=== PATIENT | female | born 2000 | race Caucasian/White ===

== ENCOUNTER → 2022-07-31 15:54 | Outpatient (BNVA) | payer SELFPAY | PROVIDERS: PCP Family Medicine; Visit Provider Emergency Medicine | DX: R11.0 Nausea (principal); N39.0 Urinary tract infection, site not specified; B34.9 Viral infection, unspecified | CPT/HCPCS: 81000; 87426 ==

== ENCOUNTER → 2022-09-04 18:20 | Outpatient (BNVA) | payer SELFPAY | PROVIDERS: PCP Family Medicine; Visit Provider Emergency Medicine | DX: R11.0 Nausea (principal) | CPT/HCPCS: 81025 ==

== ENCOUNTER → 2023-08-27 15:11 | Outpatient (BNVA) | payer OTHER, SELFPAY | PROVIDERS: PCP Family Medicine; Visit Provider Nurse Practitioner Psychiatric/Mental Health | DX: Z79.899 Other long term (current) drug therapy (principal); F31.81 Bipolar II disorder; F43.12 Post-traumatic stress disorder, chronic; F41.1 Generalized anxiety disorder; F60.3 Borderline personality disorder; F17.200 Nicotine dependence, unspecified, uncomplicated | CPT/HCPCS: 80053; 80061; 83036; 84439; 84443; 85025 ==

== ENCOUNTER → 2024-01-08 07:56 | Outpatient (BNVA) | payer SELFPAY | PROVIDERS: PCP Family Medicine; Visit Provider Nurse Practitioner Women's Health | DX: N92.6 Irregular menstruation, unspecified (principal) | CPT/HCPCS: 81025 ==

== ENCOUNTER 2024-01-18 22:14 | Emergency (ER) | payer SELFPAY ==
[2024-01-18 22:19] VITALS: BP 130/81; PULSE 97; RESP 18; TEMP 36.7; O2SAT 98; BMI 39.7
--- NOTE | 2024-01-18 23:58 | W.ED.SKABFB ---
HPI - Skin/Abscess/Foreign Bdy General: Chief complaint: Skin/Abscess/Foreign Body Stated complaint: left arm pain Time Seen by Provider: 01/18/24 23:56 History of Present Illness: 24-year-old female comes in with induration and tenderness to the left axilla. Patient appears nontoxic. Patient appears in mild to moderate pain. Patient is 8 weeks . Patient denies any drug allergies. Review of Systems General: Reports: 10 or more systems reviewed and unremarkable except in HPI and below PFSH ED PFSH: Medical History Bipolar II disorder with rapid cycling Borderline personality disorder Post-traumatic stress disorder, chronic Psychiatric care Tobacco use disorder, moderate, dependence Generalized anxiety disorder Family History Grandmother Diabetes Paternal and maternal Grandfather Diabetes Paternal and maternal Brother Psychiatric illness Mother Psychiatric illness Denies family history of Colon cancer Ovarian cancer Prostate cancer Heart disease Hypercholesteremia Breast cancer Hypertension Uterine cancer Thyroid disease Stroke Female Reproductive History: Date of last menstrual period: 11/24/23 Para: 0 Physical Exam Const: COMMON NORMALS: alert Neck/C-Spine: COMMON NORMALS: full ROM Resp: COMMON NORMALS: normal respiratory effort Cardio: COMMON NORMALS: regular rate RATE: regular rate Back/Pelvis: COMMON NORMALS: thoracic and lumbar spine normal to inspection Extremity: COMMON NORMALS: normal to inspection Neuro: SENSORIUM/ORIENTATION: Yes alert Skin: NARRATIVE SKIN EXAM: Mild induration and redness to the left axilla. No fluctuant masses. Patient does have some mild drainage to the axillary fold. Patient reports swelling was worse yesterday but has gone down today. Course Vital Signs: Vital signs: Vital Signs Temperature 98.1 F 01/18/24 22:19 Pulse Rate 97 01/18/24 22:19 Respiratory Rate 18 01/18/24 22:19 Blood Pressure 130/81 01/18/24 22:19 Pulse Oximetry 98 01/18/24 22:19 Oxygen Delivery Me thod Room Air 01/18/24 22:19 MDM - Skin/Abscess/Foreign Bdy Medicial Decision Making 23-year-old female comes in with tenderness and swelling to the left axilla. On exam patient has some mild redness and induration to the fold of the left axilla. No fluctuant mass. There is some purulent drainage. Differential diagnosis includes abscess, cellulitis, hydradenitis. Reviewed exam with patient recommended antibiotics for the treatment of skin infection. Recommend warm moist packs to the area for further drainage and treatment. Patient reported understanding of care plan need for follow-up or return to the ER. No radiology studies performed this visit Discharge Plan Discharge Patient Disposition: Home Clinical Impression: Cellulitis of arm, left Condition: Stable Prescriptions: New clindamycin HCl 300 mg capsule 300 mg PO Q6H 7 Days Qty: 28 0RF hydrocodone-acetaminophen 5-325 mg tablet 1 tab PO Q8H PRN (Reason: pain (scale score 7-10)) Qty: 7 0RF No Action olanzapine 10 mg tablet 10 mg PO BEDTIME Qty: 30 1RF Rx Instructions: Take one tablet at bedtime Discharge Orders: Discharge ED (Routine); Ordered 01/19/24 Ordered By: Donavan Pan Referrals: Marlo Almodovar MD [Primary Care Provider] - Discharge Diet: Usual diet Discharge Activity: Increase activity as tolerated Patient Instructions: Cellulitis (ED) Activity Restrictions/Additional Instructions: Warm packs to the underarm to help with pain and to soften the tissue. Take antibiotics by mouth. Use acetaminophen to control pain. Use hydrocodone for severe pain. Follow-up with primary care for further instructions. Return to ED for worsening symptoms such as inability to hold fluids down, fever greater than 100.4, increasing redness and swelling to the arm. Coding Level of Care Code ED [employer] for Delvin Starr
[2024-01-19] MEDS: HYDROcodone-acetaminophen 5-325 mg Tablet 1 TAB PO (00:16)
[2024-01-19] MEDS: clindamycin 150 mg Capsule 300 MG PO (00:16)
[2024-01-19 01:17] VITALS: BP 116/74; PULSE 17; RESP 89; O2SAT 98
== END 2024-01-19 00:21 | disposition home or self-care (01) ==
PROVIDERS: Emergency Provider Nurse Practitioner Family; PCP Family Medicine
DX: O26.891 Other specified pregnancy related conditions, first trimester (principal); L03.114 Cellulitis of left upper limb; Z3A.08 8 weeks gestation of pregnancy
CPT/HCPCS: 99283

== ENCOUNTER → 2024-01-27 12:26 | Outpatient (BNVA) | payer SELFPAY | PROVIDERS: PCP Family Medicine; Visit Provider Obstetrics & Gynecology | DX: Z36.87 Encounter for antenatal screening for uncertain dates (principal) | CPT/HCPCS: 76801 ==

== ENCOUNTER → 2024-01-29 10:20 | Outpatient (BNVA) | payer SELFPAY | PROVIDERS: PCP Family Medicine; Visit Provider Nurse Practitioner Women's Health | DX: Z34.90 Encounter for supervision of normal pregnancy, unspecified, unspecified trimester (principal) | CPT/HCPCS: 80307; 81000; 84439; 84443; 84481; 85025; 86592; 86762; 86787; 86803; 86850; 86900; 87086; 87340; 87806 ==

== ENCOUNTER → 2024-02-23 13:17 | Outpatient (BNVA) | payer MEDICAID, SELFPAY | PROVIDERS: PCP Family Medicine; Visit Provider Obstetrics & Gynecology | DX: Z01.419 Encounter for gynecological examination (general) (routine) without abnormal findings (principal) | CPT/HCPCS: 87624 ==

== ENCOUNTER → 2024-03-18 08:09 | Outpatient (BNVA) | payer MEDICAID, SELFPAY | PROVIDERS: PCP Family Medicine; Visit Provider Nurse Practitioner Women's Health | DX: Z34.90 Encounter for supervision of normal pregnancy, unspecified, unspecified trimester | CPT/HCPCS: 82105; 84315; 87491; 87591 ==

== ENCOUNTER → 2024-04-13 14:24 | Outpatient (BNVA) | payer MEDICAID, SELFPAY | PROVIDERS: PCP Family Medicine; Visit Provider Obstetrics & Gynecology | DX: Z34.82 Encounter for supervision of other normal pregnancy, second trimester (principal) | CPT/HCPCS: 76805 ==

== ENCOUNTER → 2024-04-20 09:09 | Outpatient (BNVA) | payer MEDICAID, SELFPAY | PROVIDERS: PCP Family Medicine; Visit Provider Obstetrics & Gynecology | DX: Z34.90 Encounter for supervision of normal pregnancy, unspecified, unspecified trimester (principal) | CPT/HCPCS: 81000 ==

== ENCOUNTER 2024-04-27 00:45 | Emergency (ER) | payer MEDICAID, SELFPAY ==
[2024-04-27 00:47] VITALS: BP 123/78; PULSE 125; RESP 18; TEMP 36.7; O2SAT 96
[2024-04-27 00:51] VITALS: BP 101/60; PULSE 72; RESP 19; O2SAT 93; O2SAT 97
--- NOTE | 2024-04-27 02:18 | W.ED.COVID ---
HPI - COVID General: Chief Complaint: COVID symptoms Stated Complaint: covid symptoms Time Seen by Provider: 04/27/24 01:31 Triage information: Has fever, cough or shortness of breath. Exposure to COVID + person last 14 days History of Present Illness: 24-year-old female who is approximately 25 weeks who was exposed to COVID and is now having upper respiratory symptoms. She is having a cough and some shortness of breath. Mild dizziness. She is a bit tachycardic on presentation. She has had no nausea or vomiting. No diarrhea. COVID Results: SARS-CoV-2 Antigen (Rapid) Negative (Negative) 07/31/22 15:54 SARS-CoV-2 (PCR) Not detected (NOT DETECT) 04/27/24 01:57 Coronavirus Type 229E (PCR) Not detected (NOT DETECT) 04/27/24 01:57 Review of Systems Narrative: Constitutional symptoms: Negative except as documented in HPI. Skin symptoms: Negative except as documented in HPI. Eye symptoms: Negative except as documented in HPI. ENMT symptoms: Negative except as documented in HPI. Respiratory symptoms: Negative except as documented in HPI. Cardiovascular symptoms: Negative except as documented in HPI. Gastrointestinal symptoms: Negative except as documented in HPI. Genitourinary symptoms: Negative except as documented in HPI. Musculoskeletal symptoms: Negative except as documented in HPI. Neurologic symptoms: Negative except as documented in HPI. Psychiatric symptoms: Negative except as documented in HPI. Endocrine symptoms: Negative except as documented in HPI. [facility] ED PFSH: Medical History Bipolar II disorder with rapid cycling Borderline personality disorder Post-traumatic stress disorder, chronic Psychiatric care Tobacco use disorder, moderate, dependence Generalized anxiety disorder Family History Grandmother Diabetes Paternal and maternal Grandfather Diabetes Paternal and maternal Brother Psychiatric illness Mother Psychiatric illness Denies family history of Colon cancer Ovarian cancer Prostate cancer Heart disease Hypercholesteremia Breast cancer Hypertension Uterine cancer Thyroid disease Stroke Female Reproductive History: Para: 0 Physical Exam Narrative: EXAM NARRATIVE: General: Alert, no acute distress. Skin: Warm, dry. Head: Normocephalic, atraumatic. Neck: Supple, trachea midline. Eye: Extraocular movements are intact. Ears, nose, mouth and throat: mucosa moist. Cardiovascular: Regular, tachycardic, normal peripheral perfusion. Respiratory: Lungs are clear to auscultation, respirations are non-labored, breath sounds are equal, Symmetrical chest wall expansion. Gastrointestinal: Soft, Nontender, Non distended, Normal bowel sounds. Gravid. Musculoskeletal: Normal ROM, no deformity. Neurological: Alert and oriented, No focal neurological deficit observed. Psychiatric: Cooperative, appropriate mood & affect. Course Vital Signs: Vital signs: Vital Signs Temperature 98.0 F 04/27/24 00:47 Pulse Rate 120 H 04/27/24 02:51 Respiratory Rate 23 H 04/27/24 02:51 Blood Pressure 101/60 04/27/24 00:51 Pulse Oximetry 92 04/27/24 02:51 Oxygen Delivery Me thod Room Air 04/27/24 00:51 MDM - COVID Medical Decision Making Respiratory panel was ordered. Patient was concern for COVID with her being . Assessment and plan: Rhinovirus positive -Evaluated by OB and heart tones were 160 and reassuring. - Discharged home - Discussed plan with patient. Answered any questions. - Evaluation and treatment of this problem were appropriate in the emergency setting. Lab Data Laboratory Results Adenovirus (PCR) Not detected (NOT DETECT) 04/27/24 01:57 C. pneumoniae DNA (PCR) Not detected (NOT DETECT) 04/27/24 01:57 Coronavirus 229E (PCR) Not detected (NOT DETECT) 04/27/24 01:57 Human Metapneumovir PCR Not detected (NOT DETECT) 04/27/24 01:57 Influenza A (H1) PCR Not detected (NOT DETECT) 04/27/24 01:57 Influ A (H1/09) PCR Not detected (NOT DETECT) 04/27/24 01:57 Influenza A (H3) PCR Not detected (NOT DETECT) 04/27/24 01:57 Influenza Type A (PCR) Not detected (NOT DETECT) 04/27/24 01:57 Influenza Type B (PCR) Not detected (NOT DETECT) 04/27/24 01:57 M. pneumoniae (PCR) Not detected (NOT DETECT) 04/27/24 01:57 Parainfluenza 1 (PCR) Not detected (NOT DETECT) 04/27/24 01:57 Parainfluenza 2 (PCR) Not detected (NOT DETECT) 04/27/24 01:57 Parainfluenza 3 (PCR) Not detected (NOT DETECT) 04/27/24 01:57 Parainfluenza 4 (PCR) Not detected (NOT DETECT) 04/27/24 01:57 RSV Type A (PCR) Not detected (NOT DETECT) 04/27/24 01:57 RSV Type B (PCR) Not detected (NOT DETECT) 04/27/24 01:57 Entero/Rhino (PCR) Detected (NOT DETECT) A 04/27/24 01:57 SARS-CoV-2 (PCR) Not detected (NOT DETECT) 04/27/24 01:57 SARS-CoV-2 Antigen (Rapid) Negative (Negative) 07/31/22 15:54 SARS-CoV-2 (PCR) Not detected (NOT DETECT) 04/27/24 01:57 Coronavirus Type 229E (PCR) Not detected (NOT DETECT) 04/27/24 01:57 No radiology studies performed this visit Discharge Plan Discharge Patient Disposition: Home Clinical Impression: Viral upper respiratory infection, Condition: Stable Prescriptions: No Action DHA 200 mg capsule PO olanzapine [Zyprexa] 15 mg tablet 15 mg PO .9 pm Qty: 30 3RF Rx Instructions: Take one tablet at 9 pm olanzapine [Zyprexa Zydis] 5 mg tablet,disintegrating 2.5 mg PO BID PRN (Reason: severe anxiety/agitation) Qty: 30 2RF Rx Instructions: Take half tab 2 x per day as needed for anxiety/agitation Discharge Orders: Discharge ED (Routine); Ordered 04/27/24 Ordered By: Tanya Madden Discharge Diet: Usual diet Discharge Activity: Resume usual activity Patient Instructions: Upper Respiratory Infection (ED) Activity Restrictions/Additional Instructions: Thank you for choosing [facility] for your healthcare needs today. Please realize this is an emergency room and that we are providing you with a medical screening exam and this may not be complete and all inclusive of all the testing and or work up that you may need to determine your ailment or severity of your illness. You have been screened and evaluated and felt safe for discharge. Health conditions do change or evolve sometimes and as such it is important that you follow up with your Primary Doctor to be re checked, 3-5 days is a general good time frame for follow up. You are always welcome to return to the ED for re assessment if your symptoms are worsening or you have new concerns Coding Level of Care Code ED Transition Advisor for Delvin Starr
[2024-04-27 02:51] VITALS: PULSE 120; RESP 23; O2SAT 92
[2024-04-27 03:40] LABS: Adenovirus Not Detected (NOT DETECT); Chlamydia Pneumoniae Not Detected (NOT DETECT); Coronavirus 229E,HKU1,NL63,OC4 Not Detected (NOT DETECT); Human Metapneumovirus Not Detected (NOT DETECT); Human Rhinovirus/Enterovirus Detected (NOT DETECT); Influenza A Not Detected (NOT DETECT); Influenza A H1 Not Detected (NOT DETECT); Influenza A H1-2009 Not Detected (NOT DETECT); Influenza A H3 Not Detected (NOT DETECT); Influenza B Not Detected (NOT DETECT); Mycoplasma Pneumoniae Not Detected (NOT DETECT); Parainfluenza Virus Type 1 Not Detected (NOT DETECT); Parainfluenza Virus Type 2 Not Detected (NOT DETECT); Parainfluenza Virus Type 3 Not Detected (NOT DETECT); Parainfluenza Virus Type 4 Not Detected (NOT DETECT); Respiratory Syncytial Virus A Not Detected (NOT DETECT); Respiratory Syncytial Virus B Not Detected (NOT DETECT); SARS-COV-2 Not Detected (NOT DETECT)
[2024-04-27 04:00] VITALS: BP 125/69; PULSE 117; RESP 18; O2SAT 94
== END 2024-04-27 04:01 | disposition home or self-care (01) ==
PROVIDERS: Emergency Provider Emergency Medicine
DX: O99.512 Diseases of the respiratory system complicating pregnancy, second trimester (principal); J06.9 Acute upper respiratory infection, unspecified; Z3A.25 25 weeks gestation of pregnancy; Z11.52 Encounter for screening for COVID-19
CPT/HCPCS: 87486; 87581; 87633; 99283

== ENCOUNTER → 2024-05-11 08:06 | Outpatient (BNVA) | payer MEDICAID, SELFPAY | PROVIDERS: Visit Provider Nurse Practitioner Women's Health | DX: Z34.90 Encounter for supervision of normal pregnancy, unspecified, unspecified trimester (principal) | CPT/HCPCS: 81000 ==

== ENCOUNTER → 2024-05-31 15:09 | Outpatient (BNVA) | payer MEDICAID, SELFPAY | PROVIDERS: Visit Provider Obstetrics & Gynecology | DX: Z34.91 Encounter for supervision of normal pregnancy, unspecified, first trimester (principal) | CPT/HCPCS: 76816 ==

== ENCOUNTER → 2024-06-22 08:14 | Outpatient (BNVA) | payer OTHER, SELFPAY | PROVIDERS: Visit Provider Nurse Practitioner Women's Health | DX: Z34.90 Encounter for supervision of normal pregnancy, unspecified, unspecified trimester (principal); Z3A.09 9 weeks gestation of pregnancy; F31.81 Bipolar II disorder | CPT/HCPCS: 81000; 82306; 82607; 82728; 82746; 83550; 85025 ==

== ENCOUNTER → 2024-06-25 08:41 | Outpatient (BNVA) | payer OTHER, SELFPAY | PROVIDERS: Visit Provider Obstetrics & Gynecology | DX: Z34.90 Encounter for supervision of normal pregnancy, unspecified, unspecified trimester (principal) | CPT/HCPCS: 82951; 82952 ==

== ENCOUNTER → 2024-07-02 14:38 | Outpatient (BNVA) | payer MEDICAID, SELFPAY | PROVIDERS: Visit Provider Nurse Practitioner Women's Health | DX: Z34.91 Encounter for supervision of normal pregnancy, unspecified, first trimester (principal) | CPT/HCPCS: 81000 ==

== ENCOUNTER → 2024-07-14 08:19 | Outpatient (BNVA) | payer MEDICAID, SELFPAY | PROVIDERS: Visit Provider Obstetrics & Gynecology | DX: Z34.90 Encounter for supervision of normal pregnancy, unspecified, unspecified trimester (principal) | CPT/HCPCS: 81000 ==

== ENCOUNTER → 2024-07-22 10:02 | Outpatient (BNVA) | payer OTHER, SELFPAY | PROVIDERS: Visit Provider Obstetrics & Gynecology | DX: O24.410 Gestational diabetes mellitus in pregnancy, diet controlled (principal) | CPT/HCPCS: 82947; 82950 ==

== ENCOUNTER → 2024-08-04 14:12 | Outpatient (BNVA) | payer MEDICAID, SELFPAY | PROVIDERS: Visit Provider Obstetrics & Gynecology | DX: Z34.90 Encounter for supervision of normal pregnancy, unspecified, unspecified trimester (principal) | CPT/HCPCS: 81000; 87081 ==

== ENCOUNTER 2024-08-05 16:00 | Outpatient (CLI) | payer MEDICAID, SELFPAY ==
[2024-08-05 16:12] VITALS: BP 115/71; PULSE 112
--- NOTE | 2024-08-05 16:19 | USR_ITS ---
PROCEDURE INFORMATION: Exam: US Biophysical Profile Without Non-Stress Test Exam date and time: 08/05/2024 4:49 PM Age: 24 years old Clinical indication: Other: Decreased movement; ; Additional info: Decreased movement TECHNIQUE: Imaging protocol: US biophysical profile without non-stress testing. COMPARISON: [place] [id number] 05/31/2024 3:16 PM FINDINGS: heart rate: 152 bpm Amniotic fluid index: LESLIE is 11.9 cm. BIOPHYSICAL PROFILE: breathing (BPP): 2 out of 2. gross body movement (BPP): 2 out of 2. tone (BPP): 2 out of 2. Amniotic fluid (BPP): 2 out of 2. MATERNAL ANATOMY: Cervix: Cervical length measures 2.8 cm. Presentation: Cephalic US/US OB BPP wo NST [id number] IMPRESSION: Biophysical profile score is 8 out of 8.
[2024-08-05 16:20] VITALS: BMI 45.4
[2024-08-05 16:32] VITALS: BP 98/49; PULSE 101
== END 2024-08-05 17:20 | disposition home or self-care (01) ==
LOC: OPOB 16:01 → OBGYN 16:02
PROVIDERS: Visit Provider Obstetrics & Gynecology
DX: O36.8190 Decreased fetal movements, unspecified trimester, not applicable or unspecified (principal); Z3A.00 Weeks of gestation of pregnancy not specified
CPT/HCPCS: 59025; 76819; 99211

== ENCOUNTER → 2024-08-11 08:12 | Outpatient (BNVA) | payer MEDICAID, SELFPAY | PROVIDERS: Visit Provider Obstetrics & Gynecology | DX: Z53.9 Procedure and treatment not carried out, unspecified reason (principal) | CPT/HCPCS: 84315 ==

== ENCOUNTER → 2024-08-18 13:41 | Outpatient (BNVA) | payer MEDICAID, SELFPAY | PROVIDERS: Visit Provider Obstetrics & Gynecology | DX: Z34.90 Encounter for supervision of normal pregnancy, unspecified, unspecified trimester (principal) | CPT/HCPCS: 80053; 80061; 81000; 82306; 83036; 83721 ==

== ENCOUNTER 2024-08-25 11:48 | Outpatient (CLI) | payer MEDICAID, SELFPAY ==
[2024-08-25 12:10] VITALS: BP 123/62; PULSE 110; TEMP 36.4
[2024-08-25 12:29] VITALS: BP 122/64; PULSE 108
[2024-08-25 12:49] VITALS: BP 120/65; PULSE 107
[2024-08-25 13:10] VITALS: BP 121/67; PULSE 93
[2024-08-25 13:30] VITALS: BP 121/67; PULSE 93; RESP 16; TEMP 36.4
== END 2024-08-25 13:30 ==
LOC: OPOB 11:56 → OBGYN 13:24
PROVIDERS: Visit Provider Obstetrics & Gynecology
DX: O61.0 Failed medical induction of labor (principal)
CPT/HCPCS: 59025; 99211

== ENCOUNTER 2024-08-30 11:25 | Outpatient (CLI) | payer MEDICAID, SELFPAY ==
[2024-08-30 11:43] VITALS: BP 117/70; PULSE 106
[2024-08-30 12:03] VITALS: BP 114/73; PULSE 97
[2024-08-30 12:10] VITALS: BP 114/73; PULSE 97
== END 2024-08-30 12:10 | disposition home or self-care (01) ==
LOC: OPOB 11:37 → OBGYN 11:38
PROVIDERS: Visit Provider Obstetrics & Gynecology
DX: O24.419 Gestational diabetes mellitus in pregnancy, unspecified control (principal); Z3A.00 Weeks of gestation of pregnancy not specified
CPT/HCPCS: 59025; 81000; 99211

== ENCOUNTER 2024-09-02 13:00 | Outpatient (CLI) | payer MEDICAID, SELFPAY ==
[2024-09-02 13:00] VITALS: BMI 46.2
[2024-09-02 13:14] VITALS: BP 113/66; PULSE 114
[2024-09-02 13:35] VITALS: BP 111/62; PULSE 108
== END 2024-09-02 13:45 | disposition home or self-care (01) ==
LOC: OPOB 13:07 → OBGYN 13:08
PROVIDERS: Absent Provider Obstetrics & Gynecology; Family Provider Obstetrics & Gynecology; Visit Provider Obstetrics & Gynecology
DX: O48.0 Post-term pregnancy (principal); Z3A.00 Weeks of gestation of pregnancy not specified
CPT/HCPCS: 59025; 99211

== ENCOUNTER 2024-09-05 19:00 | Inpatient (IN) | payer MEDICAID, SELFPAY ==
[2024-09-05] VITALS (51 sets, daily range): BP systolic 100–134; BP diastolic 51–97; PULSE 79–118; RESP 17; TEMP 36.8; O2SAT 96–100; BMI 46.4
[2024-09-05 18:25] LABS: Amphetamines Screen Urine Negative (Negative); Barbiturates Screen Urine Negative (Negative); Benzodiazepines Screen Urine Negative (Negative); Cocaine Screen Urine Negative (Negative); Opiate Screen Urine Negative (Negative); PCP Screen Urine Negative (Negative); THC Screen Urine Negative (Negative)
[2024-09-05 18:45] LABS: Basophils # 0.1 10^3/uL (0.0-0.1); Basophils % 0.3 %; Eosinophils # 0.2 10^3/uL (0.0-0.8); Eosinophils % 1.1 %; Hematocrit 38.7 % (36-47); Lymphocytes # 3.3 10^3/uL (0.8-4.8); Lymphocytes % 17.6 %; Mean Corpuscular HGB Conc 33.6 g/dL (30-55); Mean Corpuscular Hemoglobin 30.9 pg (27-33); Mean Corpuscular Volume 91.9 fl (85-98); Monocytes # 1.2 10^3/uL (0.2-0.9); Monocytes % 6.4 %; Neutrophils # 13.37 10^3/uL (1.8-7.7); Neutrophils % 72.3 %; Nucleated Red Blood Cells % 0 %; Platelet Count 257 10^3/cmm (157-399); Red Blood Count 4.21 10^6/uL (3.85-5.65); Red Cell Distribution Width 13.3 % (12.1-15.1); White Blood Count 18.51 10^3/uL (3.29-11.43)
--- NOTE | 2024-09-05 18:54 | PC.NURSE ---
Pt currentlly living with family member until [facility] approval to get a house, pt stated she worries about running out of food, her utilities being shut off, and worries about transportation.
[2024-09-05] MEDS: lactated ringers 1,000 ML 999 ML IV ×2 (18:59→20:50)
[2024-09-05] MEDS: ROPivacaine syringe 100 MG/50 ML SYRINGE 13 MG EPIDURAL (21:16)
--- NOTE | 2024-09-05 21:18 | ANES.PREANE2 ---
Pre-Anesthetic Assessment Height/Weight: Height 1.5 m Weight 104.326 kg Temp Pulse Resp BP Pulse Ox O2 Del Method 98.3 F 100 17 113/57 98 Room Air 09/05/24 19:02 09/05/24 21:16 09/05/24 19:02 09/05/24 21:16 09/05/24 21:11 09/05/24 17:25 Preop Diagnosis: Intrauterine labor epidural Familial anesthetic complications: none Was Beta Octavio taken within 24 hours: N/A Was Clonidine taken within 24 hours: N/A Social No alcohol and No tobacco (previous smoker) Exam alert, oriented x 3 and clear to auscultation bilaterally Airway Mallampati: Class III Dentition: full History/ROS No significant history except as noted Pulmonary None reported CV/HEM None reported None reported Hepatic None reported GI Gastroesophageal Reflux Disease Metabolic GDM [facility] None reported Neuropsych Anxiety and Bipolar Anesthetic Plan ASA status: 2 Anesthesia: Anesthesia Evaluation and Regional (specify below) (epidural ) Risk of > 500 ml blood loss (7ml/kg in children): Yes, adequate IV access and fluids planned Medications/Allergies Home Medications Medication Instructions Recorded Confirmed Last Taken Type olanzapine 5 mg disintegrating 2.5 mg (1/2 x 5 mg) PO BID PRN 04/22/24 09/05/24 09/02/24 11:30 Rx tablet (Zyprexa Zydis) severe anxiety/agitation #30 tabs vitamin with calcium 1 tab PO DAILY #30 tabs 06/09/24 09/05/24 09/02/24 11:30 Rx no.72-iron 27 mg-folic acid 1 mg tablet ( Vitamins Plus Low Iron) olanzapine 15 mg tablet (Zyprexa) 15 mg PO .9 pm #30 tabs 08/18/24 09/05/24 09/01/24 22:00 Rx Allergies Allergy/AdvReac Type Severity Reaction Status Date / Time No Known Allergies Allergy Verified 08/30/24 11:02 Current Medications Generic Name Dose Route Start Last Admin Trade Name Freq PRN Reason Stop Dose Admin Lactated Ringer's 1,000 mls @ 999 mls/hr 09/05/24 18:24 09/05/24 18:59 Lactated Ringers IV 999 mls/hr .Q1H1M PRN Administration Per L&D Rescitation Protocol [facility] Anesthesia Medical History Bipolar II disorder with rapid cycling Borderline personality disorder Post-traumatic stress disorder, chronic Psychiatric care Tobacco use disorder, moderate, dependence Generalized anxiety disorder Family History Grandmother Diabetes Paternal and maternal Grandfather Diabetes Paternal and maternal Brother Psychiatric illness Mother Psychiatric illness Denies family history of Colon cancer Ovarian cancer Prostate cancer Heart disease Hypercholesteremia Breast cancer Hypertension Uterine cancer Thyroid disease Stroke Social History Smoking and tobacco/nicotine status: current every day tobacco/nicotine user Female Reproductive History : 1 Para: 0 Data Anesthesia 09/05/24 18:35 Short CBC 09/05/24 Range/Units 18:35 WBC 18.51 H (3.29-11.43) 10^3/uL Hgb 13.00 (11.27-16.99) g/dL Hct 38.7 (36-47) % MCV 91.9 (85-98) fl Plt Count 257 (157-399) 10^3/cmm Neut % (Auto) 72.3 % Neut # (Auto) 13.37 H (1.8-7.7) 10^3/uL Blood Bank 09/05/24 18:35 Blood Type O Positive Rho(D) Type Rh positive Antibody Screen Negative Cardiac Studies: No Data to Display Anesthesia Procedures Epidural Time Out Performed: Yes Consents Signed: Procedure Consent Consent: requested by attending/covering physician, from patient, risks and benefits reviewed and patient agrees to proceed Lumbar Level: L4-L5 Epidural position: sitting Epidural procedure: sterile prep of area, 1% lidocaine to numb the area, 18 g needle, negative for paresthesia passed, neg for paresthesia, test dose given, 1.5% xylocaine 1:200k epi, 0.2% Ropivacaine bolus ml (5), placed PCEA, no systemic response, sterile dressing applied, L.U.D. no apparent complications and 0.2% Ropiavacaine @ mls/hr (13) Additional Comments: CATRINA 5cm, catheter easily threaded to 5cm in the space. VS monitored throughout and remained stable. Pt educated on TIRE FABRICATOR. Pt is reporting decreased pain with contractions
[2024-09-05] MEDS: dextrose 5%-lactated ringers 1,000 ML 125 ML IV (23:47)
[2024-09-06] VITALS (22 sets, daily range): BP systolic 97–115; BP diastolic 51–74; PULSE 79–108; RESP 16–18; TEMP 36.6–36.7; O2SAT 96–98
[2024-09-06] MEDS: oxytocin 30 UNIT/500 ML BAG 600 UNIT IV (00:08)
--- NOTE | 2024-09-06 00:14 | PM.OPHPUD ---
Labor & Delivery H&P Update Date of Procedure: September 06, 2024 Date H&P Performed: 08/30/24 H&P update information: I have reviewed H&P completed within last 30 days, I have examined patient prior to procedure and Changes to prior documentation as noted here (/-3/VX/SROM meconium stain) Admission Diagnosis: Preop diagnosis: Intrauterine
--- NOTE | 2024-09-06 00:15 | PM.DELIVERY ---
Delivery Note: Date of delivery: September 06, 2024 Pre-delivery diagnoses: Term Gestational diabetes, diet controlled Post-delivery diagnoses: Term delivered Procedure: Spontaneous vaginal delivery Delivering Physician: Fletcher Baron MD Estimated blood loss (mL): 300 Findings: Term female infant, weight 2830 g, Apgars 8/9 Post Delivery Diagnoses: Gestational diabetes: Qualifiers: Gestational diabetes mellitus control: diet-controlled Trimester: third trimester Qualified Code(s): O24.410 - Gestational diabetes mellitus in , diet controlled Delivery: The patient was noted to be complete and pushing, so was placed in the dorsal lithotomy position, prepped and draped in the usual sterile fashion for a vaginal delivery. Pt. Noted to have epidural anesthesia. At 0004 the patient delivered a viable term female infant weighing 2830 g with scores of 8 and 9 at one and five minutes, respectively. The vertex was delivered spontaneously over intact perineum. The patient was asked to push and the head delivered spontaneously in the DEVYN position, over an intact perineum. A nuchal cord was checked and none noted. The anterior shoulder delivered easily and the posterior shoulder followed. The remainder of the infant was easily delivered and the oropharynx and nasopharynx was bulb suctioned. The infant was noted to have spontaneous cry and spontaneous movement of all four extremities. The cord was clamped x 2 and cut and noted to have 2 arteries and one vein. The was passed to the mother's at where nursing personnel were in attendance. Cord blood sample was then obtained. The placenta delivered intact spontaneously and the uterus was explored. 20 units of Pitocin was placed in the IV bag to firm the uterus. Examination of the cervix and vaginal vault did not reveal any lacerations. Examination of the perineum showed no lacerations. The patient tolerated this procedure well, and recovered in L&D with her in their LDR room. All sponge and needle counts were correct. Post-Delivery Status: Good and stable History History History 1 Term 0 0 Miscarriages/Ectopic 0 Living Children 0 A&P Assessment and plan (1) Term delivered: (2) Gestational diabetes: Qualifiers: Gestational diabetes mellitus control: diet-controlled Trimester: third trimester Qualified Code(s): O24.410 - Gestational diabetes mellitus in , diet controlled Plan observation Coding Level of Care Code Acute Code for Chg Fwd Diagnoses Term delivered O80 Diet controlled gestational diabetes mellitus (GDM) in third trimester O24.410 Gestational diabetes mellitus control: diet-controlled Trimester: third trimester
[2024-09-06] MEDS: PRENATAL VIT NO.130/IRON/FOLIC 1 EACH TABLET PO (08:17)
[2024-09-06] MEDS: docusate sodium 100 mg Capsule PO ×2 (08:17→20:40)
[2024-09-06] MEDS: ibuprofen 800 mg tablet PO ×3 (08:17→20:40)
--- NOTE | 2024-09-06 08:32 | ANE.PACU2 ---
Inpatient post-anesthesia follow up: Airway intact: Yes Vital signs: Temperature 98.3 F Pulse Rate 86 Respiratory Rate 16 Blood Pressure 115/79 Pulse Oximetry 97 Oxygen Delivery Me thod Room Air Oxygen Flow Rate Fraction of Inspir ed Oxygen Hydration adequate: Yes Nausea and vomiting: No Pain level: 1 Mental status: Baseline Epidural Start/End: Epidural Start Date: 09/05/24 Epidural Start Time: 20:45 Epidural End Date: 09/06/24 Epidural End Time: 00:04
[2024-09-06 12:32] LABS: Hematocrit 36.9 % (36-47); Mean Corpuscular HGB Conc 33.6 g/dL (30-55); Mean Corpuscular Volume 92.3 fl (85-98); Mean Platelet Volume 11.2 fL (7.4-10.4); Platelet Count 246 10^3/cmm (157-399); Red Cell Distribution Width 13.6 % (12.1-15.1); White Blood Count 17.91 10^3/uL (3.29-11.43)
[2024-09-06] MEDS: OLANZapine 5 mg TABLET 15 MG PO (20:41)
[2024-09-07 04:15] VITALS: BP 114/74; PULSE 80; RESP 16; TEMP 36.7; O2SAT 96
--- NOTE | 2024-09-07 09:09 | PC.NURSE ---
Marito with [facility] Division at bedside.
[2024-09-07] MEDS: ibuprofen 800 mg tablet PO (09:47)
[2024-09-07] MEDS: PRENATAL VIT NO.130/IRON/FOLIC 1 EACH TABLET PO (09:47)
[2024-09-07] MEDS: docusate sodium 100 mg Capsule PO (09:47)
[2024-09-07 10:00] VITALS: BP 116/78; PULSE 87; RESP 18; TEMP 36.7; O2SAT 97
[2024-09-07 12:35] LABS: Chlamydia Trachomatis RNA TMA NOT DETECTED (NOT DETECTED); Neisseria Gonorrhoeae RNA, TMA NOT DETECTED (NOT DETECTED)
--- NOTE | 2024-09-07 12:50 | P.DS_ITS ---
Discharge Providers NETWORK MANAGEMENT SPECIALIST Date of Admission: 09/05/24 19:00 Date of Discharge: 09/07/24 Attending Provider at Admission: Fletcher Baron MD Attending Provider at Discharge: Marco Cruz MD Consults: none Primary NETWORK MANAGEMENT SPECIALIST: Marco Cruz MD Diagnoses at Discharge Discharge Diagnosis (1) Term delivered: Details from hospital stay: 24 y.o. G1 [facility] August 30, 2024 at 41 weeks with diet-controlled gestational diabetes admitted for induction of labor patient progressed to complete dilatation fetus was reassuring throughout patient had vaginal delivery without any lacerations patient did well and was discharged to home on the first day Status: Inactive (2) Gestational diabetes: Details from hospital stay: 24 y.o. G1 [facility] August 30, 2024 at 41 weeks with diet-controlled gestational diabetes admitted for induction of labor patient progressed to complete dilatation fetus was reassuring throughout patient had vaginal delivery without any lacerations patient did well and was discharged to home on the first day Status: Inactive Qualifiers: Gestational diabetes mellitus control: diet-controlled Trimester: third trimester Qualified Code(s): O24.410 - Gestational diabetes mellitus in , diet controlled Reason for Visit Reason for Visit: CONTRACTIONS Brief History: 24 y.o. G1 [facility] August 30, 2024 at 41 weeks with diet-controlled gestational diabetes admitted for induction of labor Hospital Course Hospital Course 24 y.o. G1 [facility] August 30, 2024 at 41 weeks with diet-controlled gestational diabetes admitted for induction of labor patient progressed to complete dilatation fetus was reassuring throughout patient had vaginal delivery without any lacerations patient did well and was discharged to home on the first day Information Peripartum Data: Delivery Method: Vaginal Laceration description: None Episiotomy description: None complications: none Physical Exam Narrative: General comfortable Lungs: clear Cor: RRR Abd: soft, nontender. Fundus firm. Ext: no edema Urinary Catheter Management: Julian: Cath Placed During This Visit: yes Urinary Catheter Date of Insertion: 09/05/24 Urinary Catheter Time of Insertion: 21:35 History History History 1 Term 1 0 Miscarriages/Ectopic 0 Living Children 1 Discharge Data Studies Completed and Pending Laboratory Results WBC 17.91 10^3/uL (3.29-11.43) H 09/06/24 12:05 RBC 4.00 10^6/uL (3.85-5.65) 10/14/24 12:05 Hgb 12.40 g/dL (11.27-16.99) 09/06/24 12:05 Hct 36.9 % (36-47) 09/06/24 12:05 MCV 92.3 fl (85-98) 09/06/24 12:05 MCH 31.0 pg (27-33) 09/06/24 12:05 MCHC 33.6 g/dL (30-55) 09/06/24 12:05 RDW 13.6 % (12.1-15.1) 09/06/24 12:05 Plt Count 246 10^3/cmm (157-399) 09/06/24 12:05 MPV 11.2 fL (7.4-10.4) H 09/06/24 12:05 Neut % (Auto) 72.3 % 09/05/24 18:35 Lymph % (Auto) 17.6 % 09/05/24 18:35 Dane % (Auto) 6.4 % 09/05/24 18:35 Eos % (Auto) 1.1 % 09/05/24 18:35 Baso % (Auto) 0.3 % 09/05/24 18:35 Neut # (Auto) 13.37 10^3/uL (1.8-7.7) H 09/05/24 18:35 Lymph # (Auto) 3.3 10^3/uL (0.8-4.8) 09/05/24 18:35 Dane # (Auto) 1.2 10^3/uL (0.2-0.9) H 09/05/24 18:35 Eos # (Auto) 0.2 10^3/uL (0.0-0.8) 09/05/24 18:35 Baso # (Auto) 0.1 10^3/uL (0.0-0.1) 09/05/24 18:35 Nucleated RBC % (auto) 0 % 09/05/24 18:35 Nucleated RBCs # 0.0 /100WBC 09/05/24 18:35 Urine Opiates Screen Negative ng/mL (Negative) 09/05/24 18:00 Ur Barbiturates Screen Negative ng/mL (Negative) 09/05/24 18:00 Ur Phencyclidine Scrn Negative ng/mL (Negative) 09/05/24 18:00 Ur Amphetamines Screen Negative ng/mL (Negative) 09/05/24 18:00 U Benzodiazepines Scrn Negative ng/mL (Negative) 09/05/24 18:00 Urine Cocaine Screen Negative ng/mL (Negative) 09/05/24 18:00 U Marijuana (THC) Screen Negative ng/mL (Negative) 09/05/24 18:00 C.trachomatis RNA (TMA) Not detected (NOT DETECTED) 09/05/24 18:00 Chlamydia/GC Comment See note 09/05/24 18:00 N.gonorrhoeae RNA (TMA) Not detected (NOT DETECTED) 09/05/24 18:00 Blood Type O Positive 09/05/24 18:35 Rho(D) Type Rh positive 09/05/24 18:35 Antibody Screen Negative 09/05/24 18:35 Procedures Performed induction of labor vaginal delivery Vitals Last Vital Signs Temp 98.3 F 09/07/24 14:21 Pulse 86 09/07/24 14:21 Resp 16 09/07/24 14:21 BP 115/79 09/07/24 14:21 Pulse Ox 97 09/07/24 14:21 O2 Del Method Room Air 09/07/24 04:15 Results Labs OB ([facility]): Obstetrics US 05/31/24 Obstetrics US/Biophysical Profile Blood Type O Positive 09/05/24 Antibody Screen Negative 09/05/24 Hct 36.9 % (36-47) 09/06/24 Hgb 12.40 g/dL (11.27-16.99) 09/06/24 Rho(D) Type Rh positive 09/05/24 Plt Count 246 10^3/cmm (157-399) 09/06/24 Hep Bs Antigen Non-reactive (Nonreactive) 01/29/24 Hepatitis C Antibody Non-reactive (Nonreactive) 01/29/24 Rubella IgG Antibody 5.4 IU/mL (0.0-10.0) 01/29/24 RPR Nonreactive (Nonreactive) 01/29/24 HIV 1&2 Ab & HIV 1 Ag Non-reactive (Non-Reactiv) 01/29/24 TSH 1.64 uIU/mL (0.27-4.20) 01/29/24 Free T4 1.19 ng/dL (0.82-1.77) 01/29/24 C.trachomatis RNA (TMA) Not detected (NOT DETECTED) N.gonorrhoeae RNA (TMA) Not detected (NOT DETECTED) T. vaginalis Amp RNA Not detected (NOT DETECTED) 03/18/24 Chlamydia/GC Comment See note 09/05/24 Cystic Fibrosis Screen Negative 03/18/24 Glucose 1 Hr 50 gm 145 mg/dL (85-140) H 06/09/24 Gest Glucose Tolerance mg/dL 06/25/24 Hemoglobin A1c 5.4 % (4.0-6.0) 08/18/24 VZV IgG Antibody 235.60 index 01/29/24 HCG, Qual Positive (Negative) H 01/08/24 Urine Opiates Screen Negative ng/mL (Negative) 09/05/24 Ur Barbiturates Screen Negative ng/mL (Negative) 09/05/24 Ur Phencyclidine Scrn Negative ng/mL (Negative) 09/05/24 Ur Amphetamines Screen Negative ng/mL (Negative) 09/05/24 U Benzodiazepines Scrn Negative ng/mL (Negative) 09/05/24 Urine Cocaine Screen Negative ng/mL (Negative) 09/05/24 U Marijuana (THC) Screen Negative ng/mL (Negative) 09/05/24 Micro Urine Specimen 01/29/24 Pap Smear Interpret See note 02/23/24 Discharge Plan Discharge Patient Disposition: Home Condition: Stable Prescriptions: No Action norethindrone-e.estradiol-iron [Junel FE .5/ (28)] 1.5 mg-30 mcg (21)/75 mg (7) tablet 1 tab PO DAILY Qty: 84 1RF Rx Instructions: take one tab daily propranolol 10 mg tablet 5 mg PO BID PRN (Reason: anxiety) Qty: 30 3RF Rx Instructions: May take half a tablet twice per day as needed for anxiety omeprazole 20 mg capsule,delayed release(DR/EC) 20 mg PO DAILY Qty: 30 1RF divalproex [Depakote] 500 mg tablet,delayed release (DR/EC) 500 mg PO .7 pm Qty: 30 2RF Rx Instructions: Take one tablet at 8 pm folic acid 1 mg tablet 1 mg PO DAILY Qty: 30 3RF Rx Instructions: Take one tablet daily Discharge Orders: Discharge Order (Routine); Ordered 09/07/24 Ordered By: Marco Cruz Referrals: Kim Reyes NP [Nurse Practitioner] - 09/22/24 2:00 pm Discharge Diet: Usual diet Discharge Activity: Increase activity as tolerated Patient Instructions: Depression (DC), Opioid Safety (DC), Preeclampsia and Eclampsia After Delivery (GEN), Hemorrhage (DC), OB Discharge Report, OB Food/Drug Interaction Guide, Opioid Safety, OB Home Care, OB Vaginal Deliveries - [facility], Abnormal Bleeding Discharge Attestations NETWORK MANAGEMENT SPECIALIST Time Spent in Discharge Care*: less than 30 min Coding Level of Care Code Acute Code for Chg Fwd Diagnoses Term delivered O80 Diet controlled gestational diabetes mellitus (GDM) in third trimester O24.410 Gestational diabetes mellitus control: diet-controlled Trimester: third trimester Time Spent (min) 20
[2024-09-07 14:21] VITALS: BP 115/79; PULSE 86; RESP 16; TEMP 36.8; O2SAT 97
== END 2024-09-07 13:50 | disposition home or self-care (01) | DRG 807 ==
LOC: OPOB 09-06 00:17 → OBGYN 09-06 00:17
PROVIDERS: Admitting Provider Obstetrics & Gynecology; Visit Provider Obstetrics & Gynecology
DX: O24.420 Gestational diabetes mellitus in childbirth, diet controlled (principal); Z37.0 Single live birth; O48.0 Post-term pregnancy; Z3A.41 41 weeks gestation of pregnancy
CPT/HCPCS: 36415; 51702; 59025; 59409; 80306; 85025; 85027; 86850; 86900; 87491; 87591; 98960; 99211; J2590; J2795; J7120; J7121

== ENCOUNTER 2024-10-03 22:57 | Emergency (ER) | payer MEDICAID, SELFPAY ==
[2024-10-03 23:03] VITALS: BP 131/86; PULSE 98; RESP 17; TEMP 36.9; O2SAT 99; BMI 42.4
[2024-10-03 23:51] VITALS: BP 138/90; PULSE 88; RESP 16; O2SAT 99
[2024-10-03] MEDS: clindamycin 150 mg Capsule 600 MG PO (23:52)
[2024-10-03] MEDS: dexamethasone 10 mg/mL INJ 8 MG PO (23:52)
--- NOTE | 2024-10-04 01:20 | ED_ITS ---
HPI - Skin/Abscess/Foreign Bdy General: Chief complaint: Skin/Abscess/Foreign Body Stated complaint: celulitis left arm pit severe pain traveling Time Seen by Provider: 10/03/24 23:20 History of Present Illness: 24-year-old female with a history of wha t sounds to be hidradenitis suppurativa. She presents with a painful, red area in her left axilla. She notes that she has had this before. It is, for the last couple of days. No draining. No fever. No streaking. She has a burning sensation to the area. Related Data Previous Rx's Medication Instructions Recorded olanzapine 5 mg disintegrating 2.5 mg (1/2 x 5 mg) PO BID PRN 04/22/24 tablet (Zyprexa Zydis) severe anxiety/agitation #30 tabs vitamin with calcium 1 tab PO DAILY #30 tabs 06/09/24 no.72-iron 27 mg-folic acid 1 mg tablet ( Vitamins Plus Low Iron) norethindrone acetate 1 mg-ethinyl 1 tab PO DAILY #63 tabs 09/23/24 estradiol 20 mcg tablet (Junel) hydroxyzine HCl 10 mg tablet 10 mg PO TID PRN anxiety #90 tabs 09/24/24 olanzapine 20 mg tablet (Zyprexa) 20 mg PO .9 pm #30 tabs 09/24/24 clindamycin HCl 300 mg capsule 300 mg PO Q6H 10 days #40 caps 10/03/24 methylprednisolone 4 mg tablets in See Rx Instructions PO .COMPLEX 10/03/24 a dose pack (Medrol (Kannan)) #21 ea Allergies Allergy/AdvReac Type Severity Reaction Status Date / Time No Known Allergies Allergy Verified 09/24/24 14:50 PFSH ED PFSH: Medical History Term delivered Gestational diabetes Bipolar II disorder with rapid cycling Borderline personality disorder Post-traumatic stress disorder, chronic Psychiatric care Tobacco use disorder, moderate, dependence Generalized anxiety disorder Family History Grandmother Diabetes Paternal and maternal Grandfather Diabetes Paternal and maternal Brother Psychiatric illness Mother Psychiatric illness Denies family history of Colon cancer Ovarian cancer Prostate cancer Heart disease Hypercholesteremia Breast cancer Hypertension Uterine cancer Thyroid disease Stroke Social History Smoking and tobacco/nicotine status: current every day tobacco/nicotine user Female Reproductive History: Date of last menstrual period: 09/06/25 Para: 0 Physical Exam Const: COMMON NORMALS: no acute distress GENERAL APPEARANCE: cooperative; not ill appearing and not frail appearing HENMT: COMMON NORMALS: normocephalic, atraumatic and Normal external nose present HEAD & SCALP: normocephalic and atraumatic FACE & SINUS: normal facial exam and face symmetric NOSE: Normal external nose present Eye: COMMON NORMALS: Equal, round and reactive pupils present and EOMs intact bilaterally PUPIL: Yes Equal, round and reactive pupils present Neck/C-Spine: GENERAL: Yes trachea midline Chest: CHEST: Yes Symmetrical chest wall rise Resp: COMMON NORMALS: normal respiratory effort, No retractions, No use of accessory muscles and clear to auscultation bilaterally AUSCULTATION: clear to auscultation bilaterally Cardio: COMMON NORMALS: regular rate and regular rhythm RATE: regular rate RHYTHM: regular rhythm GI: COMMON NORMALS: Normal to inspection, nondistended, normoactive bowel sounds present Extremity: COMMON NORMALS: no pedal edema Neuro: TASH COMA SCALE: document GCS findings Tash coma scale eye opening: Spontaneous Tash coma scale verbal response: Orientated Tash coma scale motor response: Obey commands Tash coma scale total score: 15 SENSORY EXAM: Yes extremities (intact) Psych: COMMON NORMALS: speech normal SPEECH: Yes normal speech Skin: NARRATIVE SKIN EXAM: Tender indurated area to the left anterior axilla without significant fluctuance. No streaking. Course Vital Signs: Vital signs: Vital Signs Temperature 98.5 F 10/03/24 23:03 Pulse Rate 88 10/03/24 23:51 Respiratory Rate 16 10/03/24 23:51 Blood Pressure 138/90 10/03/24 23:51 Pulse Oximetry 99 10/03/24 23:51 Oxygen Delivery Me thod Room Air 10/03/24 23:03 MDM - Skin/Abscess/Foreign Bdy Medicial Decision Making Drainable abscess is not palpated on exam. She is quite tender. She will be given antibiotics and a steroid taper for this. Outpatient follow-up. No radiology studies performed this visit Discharge Plan Discharge Patient Disposition: Home Clinical Impression: Cellulitis Condition: Stable Prescriptions: New methylprednisolone [Medrol (Kannan)] 4 mg tablets,dose pack See Rx Instructions .ROUTE .COMPLEX Qty: 21 0RF Rx Instructions: orally per package directions clindamycin HCl 300 mg capsule 300 mg PO Q6H 10 Days Qty: 40 0RF No Action Vitamin Plus Low Iron 27 mg iron- 1 mg tablet 1 tab PO DAILY Qty: 30 12RF olanzapine [Zyprexa Zydis] 5 mg tablet,disintegrating 2.5 mg PO BID PRN (Reason: severe anxiety/agitation) Qty: 30 2RF Rx Instructions: Take half tab 2 x per day as needed for anxiety/agitation norethindrone ac-eth estradiol [12/13 (21)] 1-20 mg-mcg tablet 1 tab PO DAILY Qty: 63 0RF hydroxyzine HCl 10 mg tablet 10 mg PO TID PRN (Reason: anxiety) Qty: 90 3RF Rx Instructions: Take one tablet three times per day as needed for anxiety olanzapine [Zyprexa] 20 mg tablet 20 mg PO .9 pm Qty: 30 3RF Rx Instructions: Take one tablet at 9 pm Discharge Orders: Discharge ED (Routine); Ordered 10/03/24 Ordered By: Sharath Hampton Patient Instructions: Cellulitis (ED), Hidradenitis Suppurativa (ED), Opioid Safety, Pain Management Activity Restrictions/Additional Instructions: Use warm compresses at least twice daily to dry out infection. Antibiotics as directed. Return for fever greater than 100 despite 2-3 more doses of antibiotics, spreading redness or streaking despite 2-3 more doses of antibiotics, any other concerning symptoms. Follow-up with your doctor this week. 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
== END 2024-10-03 23:52 | disposition home or self-care (01) ==
PROVIDERS: Emergency Provider Emergency Medicine
DX: L03.112 Cellulitis of left axilla (principal); Z72.0 Tobacco use
CPT/HCPCS: 99283; J1100

== ENCOUNTER → 2024-11-22 16:01 | Outpatient (BNVA) | payer OTHER, SELFPAY | PROVIDERS: Visit Provider Family Medicine | DX: J06.9 Acute upper respiratory infection, unspecified (principal) | CPT/HCPCS: 87426 ==

== ENCOUNTER → 2024-12-13 13:55 | Outpatient (BNVA) | payer BC, SELFPAY | PROVIDERS: Visit Provider Family Medicine | DX: R10.13 Epigastric pain (principal) | CPT/HCPCS: 80053; 83690; 85025 ==

== ENCOUNTER 2024-12-23 07:17 | Outpatient (CLI) | payer BC, MEDICAID, SELFPAY ==
--- NOTE | 2024-12-23 07:30 | US_ITS ---
WS: [id number] RIGHT UPPER QUADRANT ULTRASOUND HISTORY: epigastric abdominal pain COMPARISON: None available. Liver: 16.2 cm in length. Normal size liver and echogenicity. No bile duct dilatation or mass. Portal Vein: Small gallstone is present. Single gallstone measures 0.9 cm. No pericholecystic fluid o r gallbladder wall thickening. Gallbladder: Normally distended gallbladder with no stones or wall thickening. CBD: 0.3 cm Pancreas: Limited visualization. Right kidney: 10.3 cm in length. Normal size and echogenicity. No hydronephrosis or mass. Aorta and IVC: Unremarkable abdominal aorta and IVC. No ascites. US/US abdomen limited [id number] IMPRESSION: 1. Cholelithiasis without acute cholecystitis. 2. Otherwise negative RIGHT upper quadrant ultrasound.
== END 2024-12-23 07:18 | disposition home or self-care (01) ==
PROVIDERS: PCP Family Medicine; Visit Provider Family Medicine
DX: R10.13 Epigastric pain (principal); R93.89 Abnormal findings on diagnostic imaging of other specified body structures
CPT/HCPCS: 76705

== ENCOUNTER 2024-12-30 15:05 | Emergency (ER) | payer BC, MEDICAID, SELFPAY ==
[2024-12-30 15:31] VITALS: BP 107/71; PULSE 104; RESP 18; TEMP 36.7; O2SAT 97; BMI 40.4
[2024-12-30 17:40] LABS: Basophils % 0.3 %; Eosinophils # 0.4 10^3/uL (0.0-0.8); Eosinophils % 2.7 %; Hematocrit 46.7 % (36-47); Lymphocytes # 5.1 10^3/uL (0.8-4.8); Lymphocytes % 34.2 %; Mean Corpuscular HGB Conc 32.5 g/dL (30-55); Mean Corpuscular Hemoglobin 31.4 pg (27-33); Mean Corpuscular Volume 96.5 fl (85-98); Mean Platelet Volume 10.9 fL (7.4-10.4); Monocytes # 1.3 10^3/uL (0.2-0.9); Monocytes % 8.7 %; Neutrophils # 8.06 10^3/uL (1.8-7.7); Neutrophils % 53.7 %; Nucleated Red Blood Cells % 0 %; Platelet Count 414 10^3/cmm (157-399); Red Blood Count 4.84 10^6/uL (3.85-5.65); Red Cell Distribution Width 12.5 % (12.1-15.1); White Blood Count 14.99 10^3/uL (3.29-11.43)
[2024-12-30 17:57] LABS: HCG, Serum Qual Negative (Negative)
[2024-12-30 18:03] LABS: Carbon Dioxide 18 mmol/L (22-29); Chloride 101 mmol/L (98-107); Potassium 3.8 mmol/L (3.5-5.1); Sodium 137 mmol/L (136-145)
[2024-12-30 18:04] LABS: Alanine Aminotransferase 18 U/L (0-33); Albumin Level 4.3 g/dL (3.5-5.2); Alkaline Phosphatase 113 U/L (35-105); Anion Gap 21.8 (5-19); Aspartate Amino Transferase 22 U/L (0-32); Blood Urea Nitrogen 4 mg/dL (6-20); Calcium 9.9 mg/dL (8.5-10.5); Creatinine Clr Calc Pharmacy 208.8404; Glomerular Filtration Rate 123.9 mL/min (90-130); Glucose 81 mg/dL (65-115); Lipase 24 U/L (13-60); Osmolality Calculated 280 mOsm/kg (285-295); Total Bilirubin 0.3 mg/dL (0.15-1.2); Total Protein 8.3 g/dL (6.6-8.7)
--- NOTE | 2024-12-30 19:24 | CTR_ITS ---
PROCEDURE INFORMATION: Exam: CT Abdomen And Pelvis With Contrast Exam date and time: 12/30/2024 8:51 PM Age: 24 years old Clinical indication: Abdominal pain; Generalized; Additional info: Lower abd pain TECHNIQUE: Imaging protocol: Computed tomography of the abdomen and pelvis with contrast. Radiation optimization: All CT scans at this facility use at least one of these dose optimization techniques: automated exposure control; mA and/or kV adjustment per patient size (includes targeted exams where dose is matched to clinical indication); or iterative reconstruction. Contrast material: OMNIPAQUE 350; Contrast volume: 100 ml; Contrast route: INTRAVENOUS (IV); COMPARISON: US abdomen limited 23301 12/23/2024 7:33 AM RADIATION DOSE METRICS: Total DLP (mGy-cm): 877.83 FINDINGS: Liver: Normal. No mass. Gallbladder and biliary ducts: Normal. No calcified stones. No ductal dilation. Pancreas: Normal. No ductal dilation. Spleen: Normal. No splenomegaly. Adrenal glands: Normal. No mass. Kidneys and ureters: Normal. No hydronephrosis. Stomach and bowel: Circumferential bowel wall thickening of the cecum, ascending colon, transverse colon and descending colon. Findings can be seen the setting of inflammatory or infectious colitis. Appendix: No evidence of appendicitis. Intraperitoneal space: Small amount of free fluid in the pelvis. No abscess. Vasculature: Unremarkable. No abdominal aortic aneurysm. Lymph nodes: Unremarkable. No enlarged lymph nodes. Urinary bladder: Unremarkable as visualized. Reproductive: Unremarkable as visualized. Bones/joints: Unremarkable. No acute fracture. Soft tissues: Unremarkable. CT/CT abdomen pelvis w con* [id number] IMPRESSION: 1. Circumferential bowel wall thickening of the cecum, ascending colon, transverse colon and descending colon. Findings can be seen the setting of inflammatory or infectious colitis. 2. Small amount of free fluid in the pelvis. No abscess.
[2024-12-30 19:37] LABS: Bilirubin Urine Negative (Negative); Blood Urine 1+ (Negative); Glucose Urine UA Negative (Normal); Ketones Urine Trace (Negative); Leukocyte Esterase Urine 3+ (Negative); Nitrate Urine Negative (Negative); Protein Urine 1+ (Negative); Specific Gravity, Urine 1.016 (1.005-1.030); Urine Appearance Turbid (CLEAR); Urine Color Yellow (Yellow)
[2024-12-30 19:42] LABS: Add Urine Microscopic? YES; Bacteria Urine 4+ /hpf; Hyaline Casts Urine 1.65 /lpf; Squamous Epithelial Cell Urine 51-100 /hpf (0-5); WBC Urine >100 /hpf (0-5)
[2024-12-30 19:59] LABS: Add Urine Culture? Yes; UA Slide Review UA Slide Review Perf
[2024-12-30 20:13] LABS: Covid PCR NEGATIVE (Negative); Influenza A NEGATIVE (Negative); Influenza B NEGATIVE (Negative); Respiratory Syncytial Virus Ce NEGATIVE (Negative)
[2024-12-30] MEDS: cefTRIAXone 1,000 mg SDV 1000 MG IVP (21:16)
[2024-12-30 21:30] VITALS: BP 112/71; PULSE 76; RESP 16; O2SAT 96
--- NOTE | 2024-12-30 21:30 | ED_ITS ---
HPI - Nausea/Vomiting/Diarrhea 2 General: Chief complaint: Nausea/Vomiting/Diarrhea Stated complaint: Extreme stomach pain Time Seen by Provider: 12/30/24 19:09 Source: patient Mode of arrival: ambulatory Limitations: no limitations History of Present Illness: Patient is a 24-year-old female who presents the emergency department complaining of lower abdominal pain for the past couple of days. Was seen in urgent care prescribed medications but states she is not feeling better. Pain reported to be in the lower abdomen bilateral lower quadrants, she is stating that it feels like cramping/contractions. Also is reporting some nausea, vomiting, and diarrhea. Pain does not radiate to her back or other areas. Reporting the pain is currently 2/10, but has been worse. Does have daughters that has been sick at home. No blood in her vomit or stool, no change in appetite. MD elicited complaint: nausea, vomiting, diarrhea and abdominal pain Onset (ago): day(s) Associated nausea: Yes Associated abdominal pain: Yes Location of pain: RLQ and LLQ Pain consistency: constant Severity: mild Quality: cramping Exacerbating factors: none Relieving factors: none Associated symtoms: Reports nausea; Denies chest pain, diaphoresis, dizziness, dysuria, headache(s) or palpitations Related Data Previous Rx's ?Medication ?Instructions ?Recorded norethindrone 1.5 mg-ethinyl 1 tab PO DAILY #84 tabs 1 12/20/23 estradiol 30 mcg(21)/iron 75 mg(7) tablet ( FE .04/22 (28)) propranolol 10 mg tablet 5 mg (1/2 x 10 mg) PO BID HI N 11/10/24 anxiety #30 tabs divalproex 500 mg tablet,delayed 500 mg PO .7 pm #30 t abs 12/08/24 release (Depakote) folic acid 1 mg tablet 1 mg PO DAILY #30 tabs 12/08 omeprazole 20 mg capsule,delayed 20 mg PO DAILY #30 ca ps 12/23/24 release dicyclomine 20 mg tablet 20 mg PO QID #12 tabs ciprofloxacin HCl 500 mg tablet 500 mg PO BID 10 days #20 tabs 12/30/24 (Cipro) metronidazole 500 mg tablet 500 mg PO BID 7 days #14 t abs 12/30/24 Allergies Allergy/AdvReac Type Severity Reaction Status Date / Time No Known Allergies Allergy Verified 12/30/24 15:34 Review of Systems 2 General: Reports: 10 or more systems reviewed and unremarkable except in HPI and below Const: Denies: fever(s), chills, change in appetite, change in weight or diaphoresis ENMT: Denies: throat pain or hoarseness Card: Denies: chest pain, palpitations or lightheadedness Resp: Denies: dyspnea, productive cough or wheezing GI: Reports: abdominal pain, nausea, vomiting and diarrhea; Denies: constipation : Denies: flank pain, difficulty voiding, dysuria, urinary frequency or urinary urgency Musc: Denies: neck pain or back pain Skin/Breast: Denies: rash or new lesions Neuro: Denies: headache(s) or dizziness PFSH ED 2 PFSH: Medical History Epigastric abdominal pain Term delivered Gestational diabetes Bipolar II disorder with rapid cycling Borderline personality disorder Post-traumatic stress disorder, chronic Psychiatric care Tobacco use disorder, moderate, dependence Generalized anxiety disorder Family History Grandmother Diabetes Paternal and maternal Grandfather Diabetes Paternal and maternal Brother Psychiatric illness Mother Psychiatric illness Denies family history of Colon cancer Ovarian cancer Prostate cancer Heart disease Hypercholesteremia Breast cancer Hypertension Uterine cancer Thyroid disease Stroke Social History Smoking and tobacco/nicotine status: current every day tobacco/nicotine user cigarettes Packs smoked per day: 0.5 Alcohol intake: current Alcohol intake frequency: other Substance/Drug Use: former Date of last use: age 16 Former substance use details: denies injection use Household members: other Details: boyfriend and his parents and patients's baby Marital status: Single Number of children: 1 Highest education level completed: 9th Grade Current occupational status: unemployed Female Reproductive History: Date of last menstrual period: 12/03/24 Para: 0 Physical Exam 2 Const: COMMON NORMALS: no acute distress, patient oriented x3, no limitations, healthy appearing, alert and well nourished GENERAL APPEARANCE: cooperative and comfortable ORIENTATION/CONSCIOUSNESS: Yes awake HENMT: COMMON NORMALS: normocephalic, atraumatic, hearing grossly normal bilaterally, external ears normal, Normal external nose present, Normal nasal mucous membranes and turbinates present and moist oral mucous membranes HEAD & SCALP: normocephalic and atraumatic NOSE: Normal external nose present and Normal nasal mucous membranes and turbinates present EXTERNAL EAR: Yes external ears normal Eye: COMMON NORMALS: Equal, round and reactive pupils present, EOMs intact bilaterally, conjunctivae normal and normal visual arevalo by confrontation C ONJUNCTIVA: Yes conjunctivae normal PUPIL: Yes Equal, round and reactive pupils present Neck/C-Spine: COMMON NORMALS: full ROM, supple, no meningeal signs and no JVD Resp: COMMON NORMALS: normal respiratory effort, No retractions, No use of accessory muscles and clear to auscultation bilaterally AUSCULTATION: clear to auscultation bilaterally, no crackles, no rales, no rhonchi and no wheezes Cardio: COMMON NORMALS: no JVD, regular rate, regular rhythm, S1 normal heart sound present, S2 normal heart sound present, No gallops present (Cardio), No clicks present (Cardio), No murmurs present (Cardio), No rub (Cardio) and Peripheral pulses 2+ throughout RATE: regular rate RHYTHM: regular rhythm HEART SOUNDS: S1 normal heart sound present and S2 normal heart sound present PERIPHERAL PULSES: Peripheral pulses 2+ throughout GI: COMMON NORMALS: Normal to inspection, nondistended, normoactive bowel sounds present, Soft to palpation, No hepatosplenomegaly present and no masses AUSCULTATION: Yes normoactive bowel sounds PALPATION: Yes Soft to palpation, Yes Tenderness to palpation present (GI) (Mild) Details: LLQ and RLQ, No Guarding due to palpation present (GI), No Rigid due to palpation and Yes No hepatosplenomegaly present RECTAL EXAM: deferred : COMMON NORMALS: Yes no CVA tenderness BLADDER/KIDNEY EXAM: Yes no CVA tenderness Back/Pelvis: COMMON NORMALS: no CVA tenderness Extremity: COMMON NORMALS: normal to inspection and full ROM Neuro: COMMON NORMALS: patient oriented x3, moves all extremities, no focal motor deficits and no sensory deficits noted SENSORIUM/ORIENTATION: Yes alert MENINGEAL SIGNS: Yes no meningeal signs Psych: COMMON NORMALS: mental status grossly normal, cooperative and speech normal SPEECH: Yes normal speech Skin: COMMON NORMALS: no rashes or lesions noted GENERAL SKIN EXAM: no rashes or lesions noted Course 2 Vital Signs: Vital signs: Vital Signs Temperature 98.0 F 12/30/24 15:31 Pulse Rate 104 H 12/30/24 15:31 Respiratory Rate 18 12/30/24 15:31 Blood Pressure 107/71 12/30/24 15:31 Pulse Oximetry 97 12/30/24 15:31 Oxygen Delivery Me thod Room Air 12/30/24 15:31 MDM - Nausea/Vomiting/Diarrhea Medical Decision Making Patient presenting with lower abdominal pain for the past couple of days. Mild reproducible tenderness to palpation on exam. Labs showing slight elevation white count, urinalysis, though contaminated, did show signs of an infection. COVID flu RSV swab was negative. CT did show signs of colitis. Will treat with antibiotics that will cover UTI and the colitis, however do a GI soft diet and monitor her condition closely. If she worsens she is informed to come back, she verbalized understanding. Lab Data 12/30/24 16:50 12/30/24 16:50 Radiology Impressions Abdomen/Pelvis CT 12/30/24 19:24 IMPRESSION: 1. Circumferential bowel wall thickening of the cecum, ascending colon, transverse colon and descending colon. Findings can be seen the setting of inflammatory or infectious colitis. 2. Small amount of free fluid in the pelvis. No abscess. Laboratory Results WBC 14.99 10^3/uL (3.29-11.43) H 12/30/24 16:50 RBC 4.84 10^6/uL (3.85-5.65) 12/30/24 16:50 Hgb 15.20 g/dL (11.27-16.99) 12/30/24 16:50 Hct 46.7 % (36-47) 12/30/24 16:50 MCV 96.5 fl (85-98) 12/30/24 16:50 MCH 31.4 pg (27-33) 12/30/24 16:50 MCHC 32.5 g/dL (30-55) 12/30/24 16:50 RDW 12.5 % (12.1-15.1) 12/30/24 16:50 Plt Count 414 10^3/cmm (157-399) H 12/30/24 16:50 MPV 10.9 fL (7.4-10.4) H 12/30/24 16:50 Neut % (Auto) 53.7 % 12/30/24 16:50 Lymph % (Auto) 34.2 % 12/30/24 16:50 Sauk % (Auto) 8.7 % 12/30/24 16:50 Eos % (Auto) 2.7 % 12/30/24 16:50 Baso % (Auto) 0.3 % 12/30/24 16:50 Neut # (Auto) 8.06 10^3/uL (1.8-7.7) H 12/30/24 16:50 Lymph # (Auto) 5.1 10^3/uL (0.8-4.8) H 12/30/24 16:50 Sauk # (Auto) 1.3 10^3/uL (0.2-0.9) H 12/30/24 16:50 Eos # (Auto) 0.4 10^3/uL (0.0-0.8) 12/30/24 16:50 Baso # (Auto) 0.0 10^3/uL (0.0-0.1) 12/30/24 16:50 Nucleated RBC % (auto) 0 % 12/30/24 16:50 Nucleated RBCs # 0.0 /100WBC 12/30/24 16:50 Sodium 137 mmol/L (136-145) 12/30/24 16:50 Potassium 3.8 mmol/L (3.5-5.1) 12/30/24 16:50 Chloride 101 mmol/L (98-107) 12/30/24 16:50 Carbon Dioxide 18 mmol/L (22-29) L 12/30/24 16:50 Anion Gap 21.8 (5-19) H 12/30/24 16:50 BUN 4 mg/dL (6-20) L 12/30/24 16:50 Creatinine 0.6 mg/dL (0.5-0.9) 12/30/24 16:50 GFR Calculation 123.9 mL/min (90-130) 12/30/24 16:50 Glucose 81 mg/dL (65-115) 12/30/24 16:50 Calculated Osmolality 280 mOsm/kg (285-295) L 12/30/24 16:50 Calcium 9.9 mg/dL (8.5-10.5) 12/30/24 16:50 Total Bilirubin 0.3 mg/dL (0.15-1.2) 12/30/24 16:50 AST 22 U/L (0-32) 12/30/24 16:50 ALT 18 U/L (0-33) 12/30/24 16:50 Alkaline Phosphatase 113 U/L (35-105) H 12/30/24 16:50 Total Protein 8.3 g/dL (6.6-8.7) 12/30/24 16:50 Albumin 4.3 g/dL (3.5-5.2) 12/30/24 16:50 Globulin 4.0 g/dL (1.3-4.6) 12/30/24 16:50 Lipase 24 U/L (13-60) 12/30/24 16:50 HCG, Qual Negative (Negative) 12/30/24 16:50 Urine Color Yellow (Yellow) 12/30/24 19:08 Urine Appearance Turbid (CLEAR) A 12/30/24 19:08 Urine pH 6.0 (5-7) 12/30/24 19:08 Ur Specific Ovid 1.016 (1.005-1.030) 12/30/24 19:08 Urine Protein 1+ (Negative) A 12/30/24 19:08 Urine Glucose (UA) Negative (Normal) 12/30/24 19:08 Urine Ketones Trace (Negative) 12/30/24 19:08 Urine Blood 1+ (Negative) A 12/30/24 19:08 Urine Nitrate Negative (Negative) 12/30/24 19:08 Urine Bilirubin Negative (Negative) 12/30/24 19:08 Urine Urobilinogen 1.0 mg/dL (Negative) 12/30/24 19:08 Ur Leukocyte Esterase 3+ (Negative) A 12/30/24 19:08 Urine RBC 11-20 /hpf (0-2) H 12/30/24 19:08 Urine WBC >100 /hpf (0-5) H 12/30/24 19:08 Ur Squamous Epith Cells 51-100 /hpf (0-5) 12/30/24 19:08 Amorphous Sediment Not Reportable 12/30/24 19:08 Urine Bacteria 4+ /hpf (NONE) H 12/30/24 19:08 Hyaline Casts 1.65 /lpf 12/30/24 19:08 Coronavirus (PCR) Negative (Negative) 12/30/24 19:05 Influenza A (PCR) Negative (Negative) 12/30/24 19:05 Influenza Type B (PCR) Negative (Negative) 12/30/24 19:05 RSV (PCR) Negative (Negative) 12/30/24 19:05 All radiology interpretation(s) finalized by discharge Discharge Plan Discharge Patient Disposition: Home Clinical Impression: Urinary tract infection, Colitis Condition: Stable Prescriptions: New metronidazole 500 mg tablet 500 mg PO BID 7 Days Qty: 14 0RF ciprofloxacin HCl [Cipro] 500 mg tablet 500 mg PO BID 10 Days Qty: 20 0RF No Action norethindrone-e.estradiol-iron [Junel FE 1.5/30 (28)] 1.5 mg-30 mcg (21)/75 mg (7) tablet 1 tab PO DAILY Qty: 84 1RF Rx Instructions: take one tab daily propranolol 10 mg tablet 5 mg PO BID PRN (Reason: anxiety) Qty: 30 3RF Rx Instructions: May take half a tablet twice per day as needed for anxiety divalproex [Depakote] 500 mg tablet,delayed release (DR/EC) 500 mg PO .7 pm Qty: 30 2RF Rx Instructions: Take one tablet at 8 pm folic acid 1 mg tablet 1 mg PO DAILY Qty: 30 3RF Rx Instructions: Take one tablet daily dicyclomine 20 mg tablet 20 mg PO QID Qty: 12 0RF omeprazole 20 mg capsule,delayed release(DR/EC) 20 mg PO DAILY Qty: 30 1RF Discharge Orders: Discharge ED (Routine); Ordered 12/30/24 Ordered By: Murray Starr Referrals: Haylee Santos MD [Primary Care Provider] - Patient Instructions: Urinary Tract Infection in Women (ED), Colitis (ED) Activity Restrictions/Additional Instructions: Antibiotics as prescribed. GI soft diet. Drink plenty of fluids. Follow-up with primary care. Return with any new or worsening. Print Language: Lithuanian Coding Level of Care Code ED Mgmt Consultant for Delvin Starr
== END 2024-12-30 21:22 | disposition home or self-care (01) ==
PROVIDERS: Emergency Medicine; Emergency Provider Physician Assistant; PCP Family Medicine
DX: N39.0 Urinary tract infection, site not specified (principal); K52.9 Noninfective gastroenteritis and colitis, unspecified; Z11.52 Encounter for screening for COVID-19; F17.210 Nicotine dependence, cigarettes, uncomplicated
CPT/HCPCS: 36415; 74177; 80053; 81001; 83690; 84703; 85025; 87086; 87637; 96374; 99285; J0696

== ENCOUNTER 2025-01-04 07:42 | Day surgery (SDC) | payer BC, MEDICAID, SELFPAY ==
[2025-01-04] VITALS (10 sets, daily range): BP systolic 106–119; BP diastolic 61–78; PULSE 61–90; RESP 9–26; TEMP 36.4–36.8; O2SAT 94–99; BMI 40.4
--- NOTE | 2025-01-04 08:15 | W.PM.OPSUD ---
Surgery/Procedure H&P Update DATE OF PROCEDURE: January 04, 2025 DATE H&P PERFORMED: 01/03/25 H&P UPDATE INFORMATION: I have reviewed H&P completed within last 30 days, I have examined patient prior to procedure and No changes to prior documentation PLANNED PROCEDURE: Operation Date: 01/04/25 09:25 Proposed Procedures p Laparoscopic Cholecystectomy 92356, K80.20(Not Applicable) - Jayme Ziegler, DO
[2025-01-04] MEDS: sodium chloride 0.9% 1,000 ML 30 ML IV (08:31)
--- NOTE | 2025-01-04 08:56 | ANES.PREANE2 ---
Pre-Anesthetic Assessment Height/Weight: Height 4 ft 11 in Weight 200 lb Temp Pulse Resp BP Pulse Ox O2 Del Method 97.7 F 84 18 106/64 97 Room Air 01/04/25 08:15 01/04/25 08:15 01/04/25 08:15 01/04/25 08:15 01/04/25 08:15 01/04/25 08:25 Preop Diagnosis: Symptomatic cholelithiasis Operation Date: 01/04/25 09:25 Proposed Procedures p Laparoscopic Cholecystectomy 25338, K80.20(Not Applicable) - Jayme Ziegler, DO Was Beta Octavio taken within 24 hours: Yes Was Clonidine taken within 24 hours: N/A Last intake: Intake Last Liquid Date 01/03/25 Last Liquid Time 23:55 Last Solid Date 01/03/25 Last Solid Time 23:45 Social Tobacco and No alcohol Exam alert, oriented x 3, clear to auscultation bilaterally and regular rate & rhythm Airway Submandibular: within normal limits Cervical ROM: within normal limits Mallampati: Class II Dentition: full Anesthetic Plan ASA status: 3 Anesthesia: General Other: No prior issues with anesthesia NPO since yesterday Patient is very nervous this morning, significant history for bipolar and PTSD Patient takes propranolol for anxiety attacks GERD on omeprazole. States that she is a little nauseous this morning Labs reviewed from 12/30/2024 and acceptable for procedure Patient appeared to have a UTI at that time and was placed on antibiotics METs greater than 4 Plan for GETA Medications/Allergies Home Medications ?Medication ?Instructions ?Recorded ?Confirmed ?Last Taken ?Type norethindrone 1.5 mg-ethinyl 1 tab PO DAILY #84 tabs 10/20/24 01/03/25 01/03/25 Rx estradiol 30 mcg(21)/iron 75 mg(7) tablet ( (28)) propranolol 10 mg tablet 5 mg (1/2 x 10 mg) PO BID PRN 11/10/24 01/03/25 Unknown Rx anxiety #30 tabs divalproex 500 mg tablet,delayed 500 mg PO .7 pm #30 tabs 12/08/24 01/03/25 01/02/25 Rx release (Depakote) folic acid 1 mg tablet 1 mg PO DAILY #30 tabs 12/08/24 01/03/25 01/03/25 Rx omeprazole 20 mg capsule,delayed 20 mg PO DAILY #30 caps 12/23/24 01/03/25 01/03/25 Rx release ciprofloxacin HCl 500 mg tablet 500 mg PO BID 10 days #20 tabs 12/30/24 01/03/25 01/03/25 Rx (Cipro) metronidazole 500 mg tablet 500 mg PO BID 7 days #14 tabs 12/30/24 01/03/25 01/03/25 Rx cefdinir 300 mg capsule 300 mg PO BID 01/03/25 01/03/25 01/03/25 History Allergies Allergy/AdvReac Type Severity Reaction Status Date / Time No Known Allergies Allergy Verified 01/03/25 11:19 Current Medications Generic Name Dose Route Start Last Admin Trade Name Pedroq PRN Reason Stop Dose Admin Sodium Chloride 1,000 mls @ 30 mls/hr 01/04/25 08:00 01/04/25 08:31 Sodium Chloride 0.9% IV 01/05/25 07:59 30 mls/hr .Q24H ALESSANDRO Administration PFSH Anesthesia Medical History Epigastric abdominal pain Term delivered Gestational diabetes Bipolar II disorder with rapid cycling Borderline personality disorder Post-traumatic stress disorder, chronic Psychiatric care Tobacco use disorder, moderate, dependence Generalized anxiety disorder Family History Grandmother Diabetes Paternal and maternal Grandfather Diabetes Paternal and maternal Brother Psychiatric illness Mother Psychiatric illness Denies family history of Colon cancer Ovarian cancer Prostate cancer Heart disease Hypercholesteremia Breast cancer Hypertension Uterine cancer Thyroid disease Stroke Social History Smoking and tobacco/nicotine status: never used tobacco/nicotine Alcohol intake: current Alcohol intake frequency: other Substance/Drug Use: former Date of last use: age 16 Former substance use details: denies injection use Household members: other Details: boyfriend and his parents and patients's baby Marital status: Single Number of children: 1 Highest education level completed: 9th Grade Current occupational status: unemployed Female Reproductive History Date of last menstrual period: 12/24/24 Para: 0 Data Anesthesia Cardiac Studies: No Data to Display
[2025-01-04 09:02] LABS: OR HCG Qualitative Urine Negative (Negative)
[2025-01-04] MEDS: ceFAZolin 2,000 mg SDV 2000 MG IVP (09:41)
--- NOTE | 2025-01-04 10:11 | P.OP_ITS ---
Operative Report Date of procedure: January 04, 2025 Surgeon: Jayme Ziegler DO Brief History: This is a very pleasant 24-year-old female who presented to my office with abdominal pain. She is diagnosed with symptomatic cholelithiasis. Laparoscopic cholecystectomy is indicated. The risks and benefits were explained and documented. Procedure: Preoperative diagnosis: Symptomatic cholelithiasis Postoperative diagnosis: Same Procedure performed: Laparoscopic cholecystectomy Surgeon: Dr. Jayme Ziegler DO Estimated blood loss: 5 mL Specimens: Gallbladder to pathology Complications: None apparent Description of procedure: Patient was wheeled into the operative room and placed on the OR table in a supine position. Abdomen was inspected prepped and draped in usual sterile fashion. Time-out was performed and all present were in agreement. A 15 blade scalp was used to make a stab incision in the left upper quadrant and intra- abdominal insufflation was achieved using a Veress needle. After localizing the tissue incisions were made and a 5 millimeter trocar was placed into the umbilicus as well as 2 in the right upper quadrant. A 12 millimeter trocar was placed in the epigastrium. Gallbladder was grasped and elevated. The triangle of Calot was carefully dissected using blunt dissection and electrocautery until the triangle of Calot clearly identified. The cystic duct was clipped proximally and double clipped distally. The duct was then ligated proximally. The cystic artery was doubly clipped and ligated. The gallbladder was then removed from the liver bed using electrocautery. The gallbladder was removed from the abdomen using an Endo-Catch bag through the epigastric incision. The liver bed was inspected and no bleeding was seen. The abdomen was irrigated and suctioned. All ports removed. Skin was washed and dried. Incisions were closed with 4-0 Monocryl in a subcuticular interrupted fashion. Skin glue was applied. Patient tolerated the procedure well.
[2025-01-04] MEDS: ondansetron 2 mg/ML SDV 2 mL 4 MG IVP (10:53)
--- NOTE | 2025-01-04 12:15 | ANE.PACU2 ---
Inpatient post-anesthesia follow up: Airway intact: Yes Vital signs: Temperature 98.2 F Pulse Rate 61 Respiratory Rate 14 Blood Pressure 119/71 Pulse Oximetry 97 Oxygen Delivery Me thod Room Air Oxygen Flow Rate 8 Fraction of Inspir ed Oxygen Hydration adequate: Yes Nausea and vomiting: No Pain level: 1 Mental status: Baseline
== END 2025-01-04 12:15 | disposition home or self-care (01) ==
PROVIDERS: Student in an Organized Health Care Education/Training Program; PCP Family Medicine; Visit Provider Surgery
PROC: 0FT44ZZ Resection of Gallbladder, Percutaneous Endoscopic Approach (ICD-10-PCS; CPT 47562; principal; 2025-01-04 09:15)
DX: K80.10 Calculus of gallbladder with chronic cholecystitis without obstruction (principal); K21.9 Gastro-esophageal reflux disease without esophagitis; Z79.899 Other long term (current) drug therapy; F31.81 Bipolar II disorder; F43.12 Post-traumatic stress disorder, chronic; F41.1 Generalized anxiety disorder
CPT/HCPCS: 47562; 81025; 88304; A4216; J0690; J2250; J2405; J3010; J7030

== ENCOUNTER → 2025-01-20 14:14 | Outpatient (BNVA) | payer MEDICAID, BC, SELFPAY | PROVIDERS: PCP Family Medicine; Visit Provider Nurse Practitioner Psychiatric/Mental Health | DX: F60.3 Borderline personality disorder (principal); F41.1 Generalized anxiety disorder | CPT/HCPCS: 80061; 83036 ==

== ENCOUNTER 2025-02-10 12:13 | Outpatient (CLI) | payer BC, MEDICAID, SELFPAY ==
[2025-01-24 15:28] VITALS: BP 120/67; BMI 40.0
--- NOTE | 2025-02-10 12:17 | XR_ITS ---
WS: [id number] Left hip, AP and frog-leg views, 02/10/2025 Clinical Data: left hip pain over 1 yr Comparison: None. Findings: No fractures or dislocations are seen. The left hip shows no erosion, sclerosis, narrowing, cyst formation or fragmentation of the left femoral head. The soft tissues are not remarkable. The adjacent pelvis is normal. XR/XR hip LT 2-3V wo/w pel* [id number] Impression: Negative left hip.
== END 2025-02-10 12:14 | disposition home or self-care (01) ==
PROVIDERS: PCP Family Medicine; Visit Provider Family Medicine
DX: M25.552 Pain in left hip (principal); G89.29 Other chronic pain
CPT/HCPCS: 73502

== ENCOUNTER 2025-03-01 10:19 | Day surgery (SDC) | payer BC, MEDICAID, SELFPAY ==
[2025-01-24 15:28] VITALS: BP 120/67; BMI 40.0
[2025-03-01] MEDS: sodium chloride 0.9% 1,000 ML 15 ML IV (10:30)
--- NOTE | 2025-03-01 10:40 | W.PM.OPSUD ---
Surgery/Procedure H&P Update DATE OF PROCEDURE: March 01, 2025 DATE H&P PERFORMED: 02/14/25 H&P UPDATE INFORMATION: I have reviewed H&P completed within last 30 days, I have examined patient prior to procedure and Changes to prior documentation as noted here CHANGES TO PREVIOUS DOCUMENTATION: Diagnostic colonoscopy for colitis PREOP DIAGNOSIS: Colitis PRIMARY INDICATION FOR PROCEDURE: Diagnostic colonoscopy for colitis PLANNED PROCEDURE: Operation Date: 03/01/25 10:15 Proposed Procedures p Colonoscopy 04141 [id number] Z12.11(Not Applicable) - Jaiden Jo MD
[2025-03-01 10:46] LABS: OR HCG Qualitative Urine Negative (Negative)
[2025-03-01 10:50] VITALS: BP 126/69; PULSE 91; RESP 17; TEMP 36.1; O2SAT 96; BMI 41.2
--- NOTE | 2025-03-01 11:00 | P.ANESASSM_ITS ---
Pre-Anesthetic Assessment Height/Weight: Height 1.5 m Weight 92.533 kg Temp Pulse Resp BP Pulse Ox O2 Del Method 97.0 F L 91 17 126/69 96 Room Air 03/01/25 10:50 03/01/25 10:50 03/01/25 10:50 03/01/25 10:50 03/01/25 10:50 03/01/25 10:50 Preop Diagnosis: Colitis Operation Date: 03/01/25 10:15 Proposed Procedures p Colonoscopy [id number] Z12.11(Not Applicable) - Jaiden Jo MD Was Beta Octavio taken within 24 hours: N/A Was Clonidine taken within 24 hours: N/A Last intake: Intake Last Liquid Date 02/28/25 Last Liquid Time 21:00 Last Solid Date 02/27/25 Last Solid Time 22:30 Social Tobacco Exam alert, oriented x 3, clear to auscultation bilaterally and regular rate & rhythm Airway Submandibular: within normal limits Cervical ROM: within normal limits Mallampati: Class II Dentition: full History/ROS No significant history except as noted and No significant complaints Pulmonary None reported CV/HEM None reported None reported Hepatic None reported GI IBS Metabolic Morbid Obesity [facility] None reported Neuropsych Anxiety and Bipolar Anesthetic Plan ASA status: 2 Anesthesia: Anesthesia Evaluation and MAC Risk of > 500 ml blood loss (7ml/kg in children): No Medications/Allergies Home Medications ?Medication ?Instructions ?Recorded ?Confirmed ?Last Taken ?Type norethindrone 1.5 mg-ethinyl 1 tab PO DAILY #84 tabs 1 12/20/23 03/01/25 02/28/25 Rx estradiol 30 mcg(21)/iron 75 mg(7) tablet (June FE ()) omeprazole 20 mg capsule,delayed 20 mg PO DAILY #90 ca ps 02/10/25 03/01/25 02/28/25 Rx release nicotine 21 mg/24 hr daily 1 patch transdermal DAILY 0 02/17/25 03/01/25 02/22/25 History transdermal patch olanzapine 15 mg tablet (Zyprexa) 15 mg PO .7 pm #30 t abs 02/17/25 03/01/25 02/28/25 Rx olanzapine 5 mg disintegrating 5 mg PO BID PRN severe agitation 02/17/25 03/01/25 1 Day Ago Rx tablet (Zyprexa Zydis) #60 tabs ~02/22/25 propranolol 10 mg tablet 10 mg PO BID PRN anxiety #60 tabs 02/17/25 03/01/25 02/22/25 Rx ondansetron 8 mg disintegrating 8 mg PO Q8H PRN nausea and 02/28/25 03/01/25 02/28/25 Rx tablet vomiting #3 tabs Allergies Allergy/AdvReac Type Severity Reaction Status Date / Time buspirone AdvReac Severe ADR-Loss Verified 03/01/25 10:42 of Appetite [facility] Anesthesia Medical History (Updated 02/17/25 @ 16:50 by Melody Lopez [facility]) Generalized anxiety disorder with panic attacks Autism spectrum disorder GERD without esophagitis Chronic left hip pain Term delivered Gestational diabetes Bipolar II disorder with rapid cycling Borderline personality disorder Post-traumatic stress disorder, chronic Psychiatric care Tobacco use disorder, moderate, dependence Surgical History Hx laparoscopic cholecystectomy Family History Grandmother Diabetes Paternal and maternal Grandfather Diabetes Paternal and maternal Brother Psychiatric illness Mother Psychiatric illness Denies family history of Colon cancer Ovarian cancer Prostate cancer Heart disease Hypercholesteremia Breast cancer Hypertension Uterine cancer Thyroid disease Stroke Social History (Updated 02/17/25 @ 08:21 by Shonda Underwood LPN) Smoking and tobacco/nicotine status: current every day tobacco/nicotine user cigarettes Packs smoked per day: 0.5 Alcohol intake: current Alcohol intake frequency: other Substance/Drug Use: former Date of last use: age 16 Former substance use details: denies injection use Adopted: No Caregiver/support person: No Lives independently: No Household members: other Details: boyfriend and his parents and patients's baby Housing: House Marital status: Single Number of children: 1 Highest education level completed: 9th Grade Current occupational status: unemployed Pets and animals: No Leisure activites: reading and other Leisure activities details: playing with baby Sexually active: Yes Do you think of yourself as: Straight/Heterosexual Current gender identity: Female Daly/Shinto: Lutheran Special daly needs: No Agree to transfusion: Yes Female Reproductive History Date of last menstrual period: 02/07/25 Para: 0 Spontaneous abortions: No Data Anesthesia Cardiac Studies: No Data to Display
[2025-03-01 12:58] VITALS: BP 97/59; PULSE 81; RESP 16; TEMP 36.6; O2SAT 96
[2025-03-01 13:12] VITALS: BP 106/64; PULSE 62; RESP 18; O2SAT 99
== END 2025-03-01 13:35 | disposition home or self-care (01) ==
PROVIDERS: Student in an Organized Health Care Education/Training Program; PCP Family Medicine; Visit Provider Student in an Organized Health Care Education/Training Program
PROC: 0DJD8ZZ Inspection of Lower Intestinal Tract, Via Natural or Artificial Opening Endoscopic (ICD-10-PCS; CPT 45378; principal; 2025-03-01 10:15)
DX: K58.9 Irritable bowel syndrome, unspecified (principal); K21.9 Gastro-esophageal reflux disease without esophagitis; F17.210 Nicotine dependence, cigarettes, uncomplicated; F41.1 Generalized anxiety disorder; F31.81 Bipolar II disorder; E66.01 Morbid (severe) obesity due to excess calories; Z68.41 Body mass index [BMI] 40.0-44.9, adult; Z79.899 Other long term (current) drug therapy; Z90.49 Acquired absence of other specified parts of digestive tract
CPT/HCPCS: 45380; 81025; 88305; J2704; J7030; J9999

== ENCOUNTER → 2025-03-17 08:16 | Outpatient (BNVA) | payer MEDICAID, SELFPAY ==
[2025-01-24 15:28] VITALS: BP 120/67; BMI 40.0
== END ==
PROVIDERS: PCP Family Medicine; Visit Provider Student in an Organized Health Care Education/Training Program
DX: Z09 Encounter for follow-up examination after completed treatment for conditions other than malignant neoplasm (principal)
CPT/HCPCS: 99213

== ENCOUNTER 2025-04-17 15:53 | Emergency (ER) | payer BC, MEDICAID, SELFPAY ==
[2025-01-24 15:28] VITALS: BP 120/67; BMI 40.0
[2025-04-17 15:54] VITALS: BP 114/66; PULSE 87; TEMP 36.9; O2SAT 97; BMI 41.8
--- NOTE | 2025-04-17 17:24 | ED_ITS ---
HPI - Skin/Abscess/Foreign Bdy General: Chief complaint: Skin/Abscess/Foreign Body Stated complaint: L arm pain Time Seen by Provider: 04/17/25 17:06 History of Present Illness: 24-year-old female presents with complai nt of recurrent left axillary abscess. Patient reports chronic history of similar lesions in both axillae and thighs for several years, consistent with hidradenitis suppurativa. Current left axillary lesion is particularly painful and swollen. Patient has had multiple previous episodes in the same location that have resolved and recurred. The condition prevents her from being able to shave the affected area. Patient reports taking ibuprofen and Tylenol without adequate pain relief. She has been seen twice previously for similar complaints in the same location. Related Data Home Medications ?Medication ?Instructions ?Recorded ?Confirmed nicotine 21 mg/24 hr daily 1 patch transdermal DAILY 0 02/17/25 04/14/25 transdermal patch Previous Rx's ?Medication ?Instructions ?Recorded omeprazole 20 mg capsule,delayed 20 mg PO DAILY #90 ca ps 02/10/25 release norethindrone 1.5 mg-ethinyl 1 tab PO DAILY #84 tabs 0 04/01/25 estradiol 30 mcg(21)/iron 75 mg(7) tablet (June FE .04/22 (28)) propranolol 20 mg tablet 20 mg PO TID PRN anxiety #90 tabs 04/01/25 lithium carbonate 300 mg capsule 300 mg PO BID #60 cap s 04/14/25 risperidone 0.5 mg tablet 0.5 mg PO .10 pm #30 tabs (Risperdal) doxycycline hyclate 100 mg tablet 100 mg PO BID 10 day s #20 tabs 04/17/25 hydrocodone 5 mg-acetaminophen 325 1 tab PO Q8H PRN pa in #10 tabs 04/17/25 mg tablet Allergies Allergy/AdvReac Type Severity Reaction Status Date / Time buspirone AdvReac Severe ADR-Loss Verified 04/17/25 16:01 of Appetite [facility] ED PFSH: Medical History Generalized anxiety disorder with panic attacks Autism spectrum disorder GERD without esophagitis Chronic left hip pain Term delivered Gestational diabetes Bipolar II disorder with rapid cycling Borderline personality disorder Post-traumatic stress disorder, chronic Psychiatric care Tobacco use disorder, moderate, dependence Surgical History Hx laparoscopic cholecystectomy Family History Grandmother Diabetes Paternal and maternal Grandfather Diabetes Paternal and maternal Brother Psychiatric illness Mother Psychiatric illness Denies family history of Colon cancer Ovarian cancer Prostate cancer Heart disease Hypercholesteremia Breast cancer Hypertension Uterine cancer Thyroid disease Stroke Social History Smoking and tobacco/nicotine status: current every day tobacco/nicotine user cigarettes Packs smoked per day: 0.5 Alcohol intake: current Alcohol intake frequency: other Substance/Drug Use: former Date of last use: age 16 Former substance use details: denies injection use Adopted: No Caregiver/support person: No Lives independently: No Household members: other Details: boyfriend and his parents and patients's baby Housing: House Marital status: Single Number of children: 1 Highest education level completed: 9th Grade Current occupational status: unemployed Pets and animals: No Leisure activites: reading and other Leisure activities details: playing with baby Sexually active: Yes Do you think of yourself as: Straight/Heterosexual Current gender identity: Female Daly/Confucianism: Cheondoism Special daly needs: No Agree to transfusion: Yes Female Reproductive History: Para: 0 Spontaneous abortions: No Physical Exam Const: COMMON NORMALS: no acute distress, average body habitus, alert and well nourished GENERAL APPEARANCE: cooperative ORIENTATION/CONSCIOUSNESS: Yes awake HENMT: COMMON NORMALS: normocephalic and atraumatic HEAD & SCALP: normocephalic and atraumatic Eye: COMMON NORMALS: conjunctivae normal CONJUNCTIVA: Yes conjunctivae normal Neck/C-Spine: GENERAL: Yes normal visual inspection Resp: COMMON NORMALS: normal respiratory effort, No retractions and No use of accessory muscles Cardio: COMMON NORMALS: regular rhythm and Peripheral pulses 2+ throughout RHYTHM: regular rhythm PERIPHERAL PULSES: Peripheral pulses 2+ throughout GI: COMMON NORMALS: Soft to palpation and non-tender PALPATION: Yes Soft to palpation Extremity: COMMON NORMALS: full ROM and no pedal edema Neuro: COMMON NORMALS: no focal motor deficits SENSORIUM/ORIENTATION: Yes alert Skin: NARRATIVE SKIN EXAM: Left axilla hydradenitis with 2-3cm fluctuant lesion noted,consistent with infected abscess. Course Vital Signs: Vital signs: Vital Signs Temperature 98.5 F 04/17/25 15:54 Pulse Rate 87 04/17/25 15:54 Blood Pressure 114/66 04/17/25 15:54 Pulse Oximetry 97 04/17/25 15:54 Oxygen Delivery Me thod Room Air 04/17/25 15:54 MDM - Skin/Abscess/Foreign Bdy Medicial Decision Making ROS: Constitutional: Denies fever Skin: Reports recurrent abscesses in axillae and thighs All other systems reviewed and negative MEDICATIONS AND ALLERGIES: Medications: None reported Allergies: Buspirone (brain reaction, specifics not detailed) PAST HISTORICAL DATA: Past Medical History: Chronic hidradenitis suppurativa Past Surgical History: Cholecystectomy (few months ago) Social History: Current cigarette smoker, occasional alcohol use, denies drug use VITAL SIGNS: No vital signs documented in 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 Multiple previous scarring noted consistent with hidradenitis. Right axilla with evidence of previous lesions but no active abscess Lymphatic: No significant lymphadenopathy noted Rest of examination within normal limits INITIAL IMPRESSION AND PLAN: Working Diagnosis: Hidradenitis suppurativa with acute left axillary abscess Plan: 1. Strongly recommended incision and drainage which patient declined 2. Will initiate oral antibiotics with doxycycline 3. General surgery referral for definitive management 4. Pain management discussion 5. Return precautions discussed PROCEDURES: No procedures performed - patient declined offered I&D CONSIDERED BUT NOT PERFORMED: Incision and drainage (I&D) of left axillary abscess was considered and recommended but not performed due to patient preference and upcoming birthday celebration FINAL IMPRESSION: Primary diagnosis: Hidradenitis suppurativa with acute left axillary abscess The clinical picture is not currently suggestive of necrotizing fasciitis or deep tissue infection. Although other conditions were also considered, they were deemed unlikely based on the clinical information available. CLINICAL DISPOSITION: The patient's current condition is stable in my estimation and the most appropriate and indicated disposition at this time is discharge home with oral antibiotics and close follow-up. Patient is safe for discharge as she is well-appearing, has no signs of systemic infection, understands return precautions, and has demonstrated ability to seek care appropriately with worsening symptoms. CASE SUMMARY: 24-year-old female with known hidradenitis suppurativa presented with painful left axillary abscess. Patient declined recommended I&D procedure, opted for conservative management with oral antibiotics. General surgery referral placed for definitive management. Patient discharged home with appropriate follow-up plan and clear return precautions. No radiology studies performed this visit Discharge Plan Discharge Patient Disposition: Home Clinical Impression: Axillary hidradenitis suppurativa Condition: Stable Prescriptions: New doxycycline hyclate 100 mg tablet 100 mg PO BID 10 Days Qty: 20 0RF hydrocodone-acetaminophen 5-325 mg tablet 1 tab PO Q8H PRN (Reason: pain) Qty: 10 0RF No Action omeprazole 20 mg capsule,delayed release(DR/EC) 20 mg PO DAILY Qty: 90 1RF nicotine 21 mg/24 hr patch 24 hour 1 patch transdermal DAILY lithium carbonate 300 mg capsule 300 mg PO BID Qty: 60 1RF Rx Instructions: Take one capsule every morning and at 6 pm risperidone [Risperdal] 0.5 mg tablet 0.5 mg PO .10 pm Qty: 30 1RF Rx Instructions: Take one tablet at bedtime, 10 pm. norethindrone-e.estradiol-iron [Junel FE 1.5/30 (28)] 1.5 mg-30 mcg (21)/75 mg (7) tablet 1 tab PO DAILY Qty: 84 1RF propranolol 20 mg tablet 20 mg PO TID PRN (Reason: anxiety) Qty: 90 2RF Rx Instructions: May take one tablet three times per day as needed for anxiety Discharge Orders: Discharge ED (Routine); Ordered 04/17/25 Ordered By: Eren Cooper Referrals: Jaiden Jo MD [Physician, General Surgery] - 7-10 days Haylee Santos MD [Primary Care Provider, Family Practice] Patient Instructions: Abscess (ED), Opioid Safety, Pain Management Activity Restrictions/Additional Instructions: DISCHARGE INSTRUCTIONS: Take prescribed doxycycline as directed. Apply warm compresses to the affected area 3-4 times daily. Continue [id number] pain medication as needed. Follow up with general surgery as scheduled. Return to the Emergency Department immediately if you develop fever, increasing redness or swelling, severe pain, or if the abscess continues to worsen despite antibiotics. Also return if you develop any difficulty moving your arm or notice red streaks extending from the affected area. Print Language: Spanish Coding Level of Care Code ED Marketing Researcher for Delvin Starr
[2025-04-17 17:36] VITALS: BP 103/66; PULSE 86; O2SAT 96
== END 2025-04-17 17:37 | disposition home or self-care (01) ==
PROVIDERS: Emergency Provider Student in an Organized Health Care Education/Training Program; PCP Family Medicine
DX: L73.2 Hidradenitis suppurativa (principal)
CPT/HCPCS: 99283

== ENCOUNTER 2025-04-18 21:15 | Emergency (ER) | payer BC, MEDICAID, SELFPAY ==
[2025-01-24 15:28] VITALS: BP 120/67; BMI 40.0
[2025-04-18 21:16] VITALS: BP 108/71; PULSE 106; RESP 20; TEMP 36.4; O2SAT 99; BMI 41.8
[2025-04-18 21:33] VITALS: BP 106/86; PULSE 97; RESP 20; O2SAT 100
[2025-04-18] MEDS: HYDROcodone-acetaminophen 5-325 mg Tablet 1 TAB PO (21:41)
--- NOTE | 2025-04-18 22:42 | ED_ITS ---
HPI - Wound/Laceration General: Chief Complaint: Wound/Laceration Stated Complaint: abscess under arm Time Seen by Provider: 04/18/25 21:27 History of Present Illness: 25 yo female patient presents to ER with an abscess under left arm. Pt states she was started on antibiotics yesterday but cant stand the pressure and pain and is wanting it drained. Pt denies any fever. Pt is not diabetic. Related Data Home Medications ?Medication ?Instructions ?Recorded ?Confirmed nicotine 21 mg/24 hr daily 1 patch transdermal DAILY 0 02/17/25 04/14/25 transdermal patch Previous Rx's ?Medication ?Instructions ?Recorded omeprazole 20 mg capsule,delayed 20 mg PO DAILY #90 ca ps 02/10/25 release norethindrone 1.5 mg-ethinyl 1 tab PO DAILY #84 tabs 0 04/01/25 estradiol 30 mcg(21)/iron 75 mg(7) tablet ( (28)) propranolol 20 mg tablet 20 mg PO TID PRN anxiety #90 tabs 04/01/25 lithium carbonate 300 mg capsule 300 mg PO BID #60 cap s 04/14/25 risperidone 0.5 mg tablet 0.5 mg PO .10 pm #30 tabs (Risperdal) doxycycline hyclate 100 mg tablet 100 mg PO BID 10 day s #20 tabs 04/17/25 hydrocodone 5 mg-acetaminophen 325 1 tab PO Q8H PRN pa in #10 tabs 04/17/25 mg tablet Allergies Allergy/AdvReac Type Severity Reaction Status Date / Time buspirone AdvReac Severe ADR-Loss Verified 04/17/25 16:01 of Appetite Review of Systems General: Reports: 10 or more systems reviewed and unremarkable except in HPI and below PFSH ED PFSH: Medical History Generalized anxiety disorder with panic attacks Autism spectrum disorder GERD without esophagitis Chronic left hip pain Term delivered Gestational diabetes Bipolar II disorder with rapid cycling Borderline personality disorder Post-traumatic stress disorder, chronic Psychiatric care Tobacco use disorder, moderate, dependence Surgical History Hx laparoscopic cholecystectomy Family History Grandmother Diabetes Paternal and maternal Grandfather Diabetes Paternal and maternal Brother Psychiatric illness Mother Psychiatric illness Denies family history of Colon cancer Ovarian cancer Prostate cancer Heart disease Hypercholesteremia Breast cancer Hypertension Uterine cancer Thyroid disease Stroke Social History Smoking and tobacco/nicotine status: current every day tobacco/nicotine user cigarettes Packs smoked per day: 0.5 Alcohol intake: current Alcohol intake frequency: other Substance/Drug Use: former Date of last use: age 16 Former substance use details: denies injection use Adopted: No Caregiver/support person: No Lives independently: No Household members: other Details: boyfriend and his parents and patients's baby Housing: House Marital status: Single Number of children: 1 Highest education level completed: 9th Grade Current occupational status: unemployed Pets and animals: No Leisure activites: reading and other Leisure activities details: playing with baby Sexually active: Yes Do you think of yourself as: Straight/Heterosexual Current gender identity: Female Daly/Alevism: Pentecostalism Special daly needs: No Agree to transfusion: Yes Female Reproductive History: Date of last menstrual period: 04/03/25 Para: 0 Spontaneous abortions: No Physical Exam Const: COMMON NORMALS: no acute distress and patient oriented x3 Neuro: COMMON NORMALS: patient oriented x3 Skin: NARRATIVE SKIN EXAM: there is a 3cm area of erythema and induration under left arm / axilla area Procedures Abscess I/D Site: upper extremity Side (if applicable): left Local Anesthetic: lidocaine 1% Amount of anesthesia used (mL): 2 Technique: incised with #11 blade Amount of fluid expressed (mL): 10 Irrigation: Yes Packing used?: plain Course Vital Signs: Vital signs: Vital Signs Temperature 97.5 F L 04/18/25 21:16 Pulse Rate 97 04/18/25 21:33 Respiratory Rate 20 H 04/18/25 21:33 Blood Pressure 106/86 04/18/25 21:33 Pulse Oximetry 100 04/18/25 21:33 MDM - Wound/Laceration Medical Decision Making 25 yo female patient presents to ER with an abscess under left arm. Pt states she was started on antibiotics yesterday but cant stand the pressure and pain and is wanting it drained. Pt denies any fever. Pt is not diabetic. Please see procedure note for I&D. Pt tolerated procedure well. Will have patient contnue her antibiotics. Pt to return to ER in 1-2 days for wound recheck and packing removal. No radiology studies performed this visit Discharge Plan Discharge Patient Disposition: Home Clinical Impression: Abscess Condition: Stable Prescriptions: No Action omeprazole 20 mg capsule,delayed release(DR/EC) 20 mg PO DAILY Qty: 90 1RF nicotine 21 mg/24 hr patch 24 hour 1 patch transdermal DAILY lithium carbonate 300 mg capsule 300 mg PO BID Qty: 60 1RF Rx Instructions: Take one capsule every morning and at 6 pm risperidone [Risperdal] 0.5 mg tablet 0.5 mg PO .10 pm Qty: 30 1RF Rx Instructions: Take one tablet at bedtime, 10 pm. norethindrone-e.estradiol-iron [Junel FE 1.5/30 (28)] 1.5 mg-30 mcg (21)/75 mg (7) tablet 1 tab PO DAILY Qty: 84 1RF propranolol 20 mg tablet 20 mg PO TID PRN (Reason: anxiety) Qty: 90 2RF Rx Instructions: May take one tablet three times per day as needed for anxiety doxycycline hyclate 100 mg tablet 100 mg PO BID 10 Days Qty: 20 0RF hydrocodone-acetaminophen 5-325 mg tablet 1 tab PO Q8H PRN (Reason: pain) Qty: 10 0RF Discharge Orders: Discharge ED (Routine); Ordered 04/18/25 Ordered By: Aruna Carreon Referrals: Haylee Santos MD [Primary Care Provider, [facility]] Discharge Diet: Advance as tolerated Discharge Activity: Increase activity as tolerated Patient Instructions: Opioid Safety, Pain Management, Abscess (ED), Abscess Follow-up (ED) Activity Restrictions/Additional Instructions: Please follow wound car instructions Please continue to take meds as prescribed Return to PCP or ER for wound recheck and packing removal in 2 days or sooner if needed or symptoms worsen Print Language: Occitan Coding Level of Care Code ED Senior Quality Assurance Engineer for Delvin Starr
== END 2025-04-18 22:55 | disposition home or self-care (01) ==
PROVIDERS: Emergency Provider Registered Nurse; PCP Family Medicine
DX: L02.414 Cutaneous abscess of left upper limb (principal)
CPT/HCPCS: 10060; 99283; J9999

== ENCOUNTER 2025-05-05 14:19 | Inpatient (IN) | payer BC, MEDICAID, SELFPAY ==
[2025-05-04 11:58] VITALS: BP 120/67; BMI 40.0
[2025-05-05 14:34] VITALS: BP 116/64; PULSE 75; RESP 18; TEMP 36.8; O2SAT 97
--- NOTE | 2025-05-05 14:42 | W.ED.PSYCHS ---
HPI - Psych General: Chief Complaint: Psychiatric Symptoms Stated Complaint: MHE Time Seen by Provider: 05/05/25 14:30 History of Present Illness: 25-year-old female presents emergency room was directed here evidently by ARLEEN SPENCE after being seen at [facility]. Patient has a history of depression she recently decreased her lithium and stopped her Risperdal. She thought she was having side effects from since that medication change she has been having hallucinations and also been began to have suicidal thoughts that she has no specific plan she has not done anything to harm herself. She denies taking any medications in excess of her prescription amounts. Related Data Home Medications ?Medication ?Instructions ?Recorded ?Confirmed nicotine 21 mg/24 hr daily 1 patch transdermal DAILY 02/17/25 05/05/25 transdermal patch lithium carbonate 300 mg capsule 300 mg PO .@6PM 05/05/25 05/05/25 norethindrone 1.5 mg-ethinyl 1 tab PO .@6PM 05/05/25 05/05/25 estradiol 30 mcg(21)/iron 75 mg(7) tablet ( FE .04/22 (28)) omeprazole 20 mg capsule,delayed 20 mg PO .@6PM 05/05/25 05/05/25 release Previous Rx's ?Medication ?Instructions ?Recorded propranolol 20 mg tablet 20 mg PO TID PRN anxiety #90 tabs 04/01/25 Allergies Allergy/AdvReac Type Severity Reaction Status Date / Time buspirone AdvReac Severe ADR-Loss Verified 04/25/25 15:50 of Appetite Review of Systems Const: Denies: fever(s), chills, body aches, change in appetite, fatigue or malaise ENMT: Denies: throat pain, ear or mastoid pain, nasal discharge or nasal congestion Card: Denies: chest pain, edema, dyspnea on exertion or orthopnea Resp: Denies: dyspnea, productive cough or non-productive cough GI: Denies: abdominal pain, nausea, vomiting, hematemesis, coffee ground emesis, diarrhea, constipation, bloating, hematochezia or melena : Denies: flank pain, difficulty voiding, dysuria, urinary frequency or urinary urgency Skin/Breast: Denies: rash or pruritus [facility] PFSH: Medical History Hidradenitis suppurativa of multiple sites Generalized anxiety disorder with panic attacks Autism spectrum disorder GERD without esophagitis Chronic left hip pain Term delivered Gestational diabetes Bipolar II disorder with rapid cycling Borderline personality disorder Post-traumatic stress disorder, chronic Psychiatric care Tobacco use disorder, moderate, dependence Surgical History Hx of colonoscopy 4.8.25 normal; biopsies normal Hx laparoscopic cholecystectomy Family History Grandmother Diabetes Paternal and maternal Grandfather Diabetes Paternal and maternal Brother Psychiatric illness Mother Psychiatric illness Denies family history of Colon cancer Ovarian cancer Prostate cancer Heart disease Hypercholesteremia Breast cancer Hypertension Uterine cancer Thyroid disease Stroke Social History Smoking and tobacco/nicotine status: current every day tobacco/nicotine user cigarettes Packs smoked per day: 0.5 Alcohol intake: current Alcohol intake frequency: other Substance/Drug Use: former Date of last use: age 16 Former substance use details: denies injection use Adopted: No Caregiver/support person: No Lives independently: No Household members: other Details: boyfriend and his parents and patients's baby Housing: House Marital status: Single Number of children: 1 Highest education level completed: 9th Grade Current occupational status: unemployed Pets and animals: No Leisure activites: reading and other Leisure activities details: playing with baby Sexually active: Yes Do you think of yourself as: Don't Know Current gender identity: Female Daly/Anabaptism: Other Special daly needs: No Agree to transfusion: Yes Female Reproductive History: Para: 0 Spontaneous abortions: No Physical Exam Const: COMMON NORMALS: no acute distress GENERAL APPEARANCE: cooperative and comfortable ORIENTATION/CONSCIOUSNESS: Yes awake, Yes oriented to person, Yes oriented to place and Yes oriented to time HENMT: COMMON NORMALS: normocephalic, atraumatic and hearing grossly normal bilaterally HEAD & SCALP: normocephalic and atraumatic Resp: COMMON NORMALS: normal respiratory effort, No retractions, No use of accessory muscles and clear to auscultation bilaterally AUSCULTATION: clear to auscultation bilaterally Cardio: COMMON NORMALS: regular rate, regular rhythm and No murmurs present (Cardio) RATE: regular rate RHYTHM: regular rhythm GI: COMMON NORMALS: Soft to palpation and No hepatosplenomegaly present AUSCULTATION: Yes normoactive bowel sounds PALPATION: Yes Soft to palpation, No Tenderness to palpation present (GI), No Guarding due to palpation present (GI) and Yes No hepatosplenomegaly present Extremity: COMMON NORMALS: normal to inspection, capillary refill normal, no clubbing, cyanosis or edema, no calf tenderness and no pedal edema Neuro: SENSORIUM/ORIENTATION: Yes oriented to person, Yes oriented to place and Yes oriented to time Skin: COMMON NORMALS: no rashes or lesions noted GENERAL SKIN EXAM: no rashes or lesions noted Course Vital Signs: Vital signs: Vital Signs Temperature 98.2 F 05/05/25 14:34 Pulse Rate 75 05/05/25 14:34 Respiratory Rate 18 05/05/25 14:34 Blood Pressure 116/64 05/05/25 14:34 Pulse Oximetry 97 05/05/25 14:34 Oxygen Delivery Me thod Room Air 05/05/25 14:34 MDM - Psych Medical Decision Making Discussed with Dr. lewis given the adverse reaction she had alterations of her medications will admit for suicidal ideation orders written Medical Records I reviewed the patient's medical records. Lab Data I reviewed the patient's lab results. 05/05/25 14:50 05/05/25 14:50 Laboratory Results WBC 13.73 10^3/uL (3.29-11.43) H 05/05/25 14:50 RBC 4.75 10^6/uL (3.85-5.65) 05/05/25 14:50 Hgb 14.60 g/dL (11.27-16.99) 05/05/25 14:50 Hct 43.8 % (36-47) 05/05/25 14:50 MCV 92.2 fl (85-98) 05/05/25 14:50 MCH 30.7 pg (27-33) 05/05/25 14:50 MCHC 33.3 g/dL (30-55) 05/05/25 14:50 RDW 12.1 % (12.1-15.1) 05/05/25 14:50 Plt Count 411 10^3/cmm (157-399) H 05/05/25 14:50 MPV 10.3 fL (7.4-10.4) 05/05/25 14:50 Neut % (Auto) 56.3 % 05/05/25 14:50 Lymph % (Auto) 32.0 % 05/05/25 14:50 [place] % (Auto) 5.5 % 05/05/25 14:50 Eos % (Auto) 5.4 % 05/05/25 14:50 Baso % (Auto) 0.4 % 05/05/25 14:50 Neut # (Auto) 7.71 10^3/uL (1.8-7.7) H 05/05/25 14:50 Lymph # (Auto) 4.4 10^3/uL (0.8-4.8) 05/05/25 14:50 [place] # (Auto) 0.8 10^3/uL (0.2-0.9) 05/05/25 14:50 Eos # (Auto) 0.7 10^3/uL (0.0-0.8) 05/05/25 14:50 Baso # (Auto) 0.1 10^3/uL (0.0-0.1) 05/05/25 14:50 Nucleated RBC % (auto) 0 % 05/05/25 14:50 Nucleated RBCs # 0.0 /100WBC 05/05/25 14:50 Sodium 138 mmol/L (136-145) 05/05/25 14:50 Potassium 3.7 mmol/L (3.5-5.1) 05/05/25 14:50 Chloride 104 mmol/L (98-107) 05/05/25 14:50 Carbon Dioxide 20 mmol/L (22-29) L 05/05/25 14:50 Anion Gap 17.7 (5-19) 05/05/25 14:50 BUN 8 mg/dL (6-20) 05/05/25 14:50 Creatinine 0.6 mg/dL (0.5-0.9) 05/05/25 14:50 GFR Calculation 122.8 mL/min (90-130) 05/05/25 14:50 Glucose 111 mg/dL (65-115) 05/05/25 14:50 Calculated Osmolality 285 mOsm/kg (285-295) 05/05/25 14:50 Calcium 9.3 mg/dL (8.5-10.5) 05/05/25 14:50 Total Bilirubin 0.2 mg/dL (0.15-1.2) 05/05/25 14:50 AST 17 U/L (0-32) 05/05/25 14:50 ALT 19 U/L (0-33) 05/05/25 14:50 Alkaline Phosphatase 151 U/L (35-105) H 05/05/25 14:50 Total Protein 8.1 g/dL (6.6-8.7) 05/05/25 14:50 Albumin 4.3 g/dL (3.5-5.2) 05/05/25 14:50 Globulin 3.8 g/dL (1.3-4.6) 05/05/25 14:50 HCG, Qual Negative (Negative) 05/05/25 14:50 Salicylates 0.9 mg/dL (3-10) L 05/05/25 14:50 Urine Opiates Screen Negative ng/mL (Negative) 05/05/25 15:24 Acetaminophen < 5.0 ug/mL (10-30) L 05/05/25 14:50 Ur Barbiturates Screen Negative ng/mL (Negative) 05/05/25 15:24 Ur Phencyclidine Scrn Negative ng/mL (Negative) 05/05/25 15:24 Ur Amphetamines Screen Negative ng/mL (Negative) 05/05/25 15:24 U Benzodiazepines Scrn Negative ng/mL (Negative) 05/05/25 15:24 Hom[place] 0.2 mmol/L (0.6-1.2) L 05/05/25 14:50 Urine Cocaine Screen Negative ng/mL (Negative) 05/05/25 15:24 U Marijuana (THC) Screen Negative ng/mL (Negative) 05/05/25 15:24 Ethyl Alcohol < 10 mg/dL (0-10) 05/05/25 14:50 All radiology interpretation(s) finalized by discharge Discharge Plan Discharge Patient Disposition: Admitted As Inpatient Admit Provider: Leo Young Clinical Impression: Suicidal ideation, Bipolar II disorder with rapid cycling Condition: Stable Coding Level of Care Code ED Flat Folding Machine Operator for Delvin Starr
[2025-05-05 15:22] LABS: Basophils # 0.1 10^3/uL (0.0-0.1); Basophils % 0.4 %; Eosinophils # 0.7 10^3/uL (0.0-0.8); Eosinophils % 5.4 %; Hematocrit 43.8 % (36-47); Lymphocytes # 4.4 10^3/uL (0.8-4.8); Mean Corpuscular HGB Conc 33.3 g/dL (30-55); Mean Corpuscular Hemoglobin 30.7 pg (27-33); Mean Corpuscular Volume 92.2 fl (85-98); Mean Platelet Volume 10.3 fL (7.4-10.4); Monocytes # 0.8 10^3/uL (0.2-0.9); Monocytes % 5.5 %; Neutrophils # 7.71 10^3/uL (1.8-7.7); Neutrophils % 56.3 %; Nucleated Red Blood Cells % 0 %; Platelet Count 411 10^3/cmm (157-399); Red Blood Count 4.75 10^6/uL (3.85-5.65); Red Cell Distribution Width 12.1 % (12.1-15.1); White Blood Count 13.73 10^3/uL (3.29-11.43)
[2025-05-05 15:37] LABS: Alanine Aminotransferase 19 U/L (0-33); Albumin Level 4.3 g/dL (3.5-5.2); Alkaline Phosphatase 151 U/L (35-105); Anion Gap 17.7 (5-19); Aspartate Amino Transferase 17 U/L (0-32); Blood Urea Nitrogen 8 mg/dL (6-20); Calcium 9.3 mg/dL (8.5-10.5); Carbon Dioxide 20 mmol/L (22-29); Chloride 104 mmol/L (98-107); Globulin 3.8 g/dL (1.3-4.6); Glomerular Filtration Rate 122.8 mL/min (90-130); Glucose 111 mg/dL (65-115); Osmolality Calculated 285 mOsm/kg (285-295); Potassium 3.7 mmol/L (3.5-5.1); Salicylate 0.9 mg/dL (3-10); Sodium 138 mmol/L (136-145); Total Bilirubin 0.2 mg/dL (0.15-1.2); Total Protein 8.1 g/dL (6.6-8.7)
[2025-05-05 15:39] LABS: Acetaminophen < 5.0 ug/mL (10-30); Alcohol Level < 10 mg/dL (0-10)
[2025-05-05 15:43] LABS: HCG, Serum Qual Negative (Negative)
[2025-05-05 15:52] LABS: Amphetamines Screen Urine Negative (Negative); Barbiturates Screen Urine Negative (Negative); Benzodiazepines Screen Urine Negative (Negative); Cocaine Screen Urine Negative (Negative); Opiate Screen Urine Negative (Negative); PCP Screen Urine Negative (Negative); THC Screen Urine Negative (Negative)
--- NOTE | 2025-05-05 16:00 | PC.NURSE ---
96 hour hold rights read and reviewed with patient. Patient very tearful at this time and stated Why is the 96 hour hold so long, can i call my boyfriend. This nurse instructed patient that she can call as soon as gets moved to NPU. Patient verbalized understandings and copy of rights given to patient.
[2025-05-05 16:04] LABS: Lithium 0.2 mmol/L (0.6-1.2)
[2025-05-05 18:11] VITALS: BP 131/71; PULSE 88; O2SAT 98
[2025-05-05 18:16] VITALS: BP 125/61; PULSE 85; RESP 16; TEMP 37; O2SAT 98
--- NOTE | 2025-05-05 18:54 | PC.ADMIT ---
[id number] Admission Note: The patient,Isabel Lala,25 y/o, was given written information regarding hospital policies, unit procedures and contact persons. Patient's smoking status: current every day smoker. Vital Signs - 8 hr 05/05/25 14:34 05/05/25 18:11 05/05/25 18:16 Temperature 98.2 F 98.6 F Pulse Rate 75 88 85 Respiratory Rate 18 16 Blood Pressure 116/64 131/71 125/61 Pulse Oximetry 97 98 98 Oxygen Delivery Method Room Air Room Air 05/05/25 18:17 Temperature Pulse Rate Respiratory Rate Blood Pressure Pulse Oximetry Oxygen Delivery Method Room Air Pt. crying, cursing, very tearful, sent from [facility] on 96 hr hold with increasing auditory and visual hallucinations. Seeing scary man called Wicho woodward. Pt. was homeless for 2 years and recently got a house in February 2025 lives with BF, has a 8 month old baby. Her older brother commited suicide 2 years ago on Halloween. Pt. UA was negative for all substances.
[2025-05-05] MEDS: hyDROXYzine 25 mg Capsule 50 MG PO (19:28)
[2025-05-05] MEDS: nicotine 4 mg lozenge MUCOUS MEM (19:31)
[2025-05-05] MEDS: acetaminophen 325 mg Tablet 650 MG PO (19:31)
[2025-05-05 20:32] VITALS: BP 108/73; PULSE 91; RESP 20; TEMP 36.9; O2SAT 97
[2025-05-06 06:00] VITALS: BP 99/52; PULSE 58; RESP 17; O2SAT 96
[2025-05-06] MEDS: propranolol 20 mg Tablet PO ×3 (07:30→22:08)
[2025-05-06] MEDS: nicotine 21 mg Patch 1 PATCH TRANSDERMA (07:31)
--- NOTE | 2025-05-06 10:25 | W.PM.NPUH&PS ---
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 endorsed auditory or visual hallucinations. Experiencing frequent suicidal thoughts, especially after the decrease in lithium dosage, but does not fear acting on them. Reports increasingly frequent visual hallucinations, occurring daily for the last few days before hospitalization. High levels of anxiety with rapid cycling bipolar disorder and generalized anxiety with panic attacks. Experiences depressive episodes, often accompanied by negative self-talk. Reports inability to concentrate and understand due to medication side effects. Describes mood as extremely bipolar, with rapid cycling and fluctuations within minutes. Financial challenges, housing stability, overstimulation by noise, and recent medication changes are significant stressors. Attention and concentration were mostly intact and memory was mostly reliable but no more formally tested. She is alert and oriented x 3. Insight and judgment appear fair impulse control is limited. Vitals/I&O/Wt Last Vital Signs Temp 98.4 F 05/05/25 20:32 Pulse 58 L 05/06/25 06:00 Resp 17 05/06/25 06:00 BP 99/52 05/06/25 06:00 Pulse Ox 96 05/06/25 06:00 O2 Del Method Room Air 05/05/25 20:32 Data NPU 05/05/25 14:50 05/05/25 14:50 A&P Assessment and plan (1) Post-traumatic stress disorder, chronic: (2) Suicidal ideation: (3) Generalized anxiety disorder with panic attacks: (4) Tobacco use disorder, moderate, dependence: (5) Borderline personality disorder: Plan This is a 25-year-old white female with a long history of trauma, addiction and psychiatric treatment outpatient at [facility] with exposure to multiple medications with reported history of bipolar disorder may be type II diagnosis but clear presence of borderline personality disorder and PTSD. The patient presents with a history of self-injurious behavior, which is indicative of significant emotional distress. 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 The patient has been previously diagnosed with bipolar disorder, but this diagnosis may not be accurate, particularly given the early age of diagnosis and the lack of response to mood stabilizers. The symptoms may be more consistent with borderline personality disorder (BPD) rather than bipolar disorder. The patient experiences anxiety, which is likely related to PTSD, and has a history of depressive episodes characterized by feelings of helplessness, hopelessness, and worthlessness. There is also a history of passive wishes and previous suicidal ideation. She reported that Bipolar II disorder with rapid cycling is present, characterized by frequent mood swings within minutes. Generalized anxiety disorder with panic attacks is evident, contributing to heightened anxiety levels. Chronic PTSD is diagnosed, impacting emotional stability and stress response. Question of autism is noted, with a reported plan for ADOS for further evaluation once anxiety levels are managed. Hallucinations have increased recently, prompting hospitalization. Suicidal thoughts have intensified. 1. Continue the lithium 300 mg daily but increase it to 300 mg p.o. twice daily which was the starting dose originally and possibly consider Lamictal given her past history of difficulty with typical antidepressants. 2. Continue every 15 minute checks for safety. 3. Encourage individual, group and milieu therapy. 4. Encourage sober living treatment after discharge at the highest level care to which she is willing to commit. 5. Tane collateral information. PDMP PDMP Reviewed: Not Reviewed Involuntary Hold Information Hold Status: Legal Status: 96 Hour Hold Date/Time Hold Expires: 05/11/25@1510 Attestations NPU Medical Necessity Statement*: Inpatient hospitalization is medically necessary and the clinically appropriate intervention at this time. Will monitor/initiate medications and make changes as indicated. She will be in the hospital for over 2 midnights. Likely length of stay 3 to 5 days. Coding Level of Care Code Acute Code for Chg Fwd Diagnoses Post-traumatic stress disorder, chronic F43.12 Suicidal ideation R45.851 Generalized anxiety disorder with panic attacks F41.1; F41.0 Tobacco use disorder, moderate, dependence F17.200 Borderline personality disorder F60.3
[2025-05-06 14:00] VITALS: BP 110/67; PULSE 75; RESP 18; TEMP 36.8
[2025-05-06] MEDS: lithium carbonate 300 mg Capsule PO (17:55)
[2025-05-06] MEDS: pantoprazole DR 40 mg Tablet PO (17:55)
[2025-05-06 21:07] VITALS: BP 101/59; PULSE 84; RESP 18; TEMP 36.9; O2SAT 97
[2025-05-07 06:00] VITALS: BP 105/77; PULSE 87; RESP 16; TEMP 37.1; O2SAT 98
[2025-05-07] MEDS: propranolol 20 mg Tablet PO ×2 (08:38→17:37)
[2025-05-07] MEDS: lithium carbonate 300 mg Capsule PO ×2 (08:38→17:37)
[2025-05-07] MEDS: nicotine 21 mg Patch 1 PATCH TRANSDERMA (08:38)
[2025-05-07] MEDS: hyDROXYzine 25 mg Capsule 50 MG PO ×2 (11:29→21:14)
--- NOTE | 2025-05-07 11:36 | PC.NURSE ---
Pt experiencing anxiety, pt asked for a propranolol, it was too soon to give that medication. Pt began to hyperventilate at the nurses station window and this nurse coached the pt to breath in the nose and out the mouth. Administered 50mg Vistaril PO, all pt's needs are met. Pt then sat down for lunch with peers in the dayroom.
[2025-05-07 14:00] VITALS: BP 84/58; PULSE 118; RESP 16; TEMP 36.9; O2SAT 96
[2025-05-07] MEDS: ibuprofen 600 mg Tablet PO (16:13)
[2025-05-07] MEDS: pantoprazole DR 40 mg Tablet PO (17:37)
--- NOTE | 2025-05-07 18:38 | W.PM.NPUPNS ---
Subjective NPU Subjective: Patient presents today reporting that things are fine overall. She reports that she is tolerating the increase in the lithium without any problems. She reports feeling that her situation was driven by the Risperdal and the impact it had on her body and hormones. She likely had a precipitous increase in her prolactin level leading to and other feelings like I was over just beginning . We discussed monitoring her and getting a lithium level Friday morning and considering discharge sometime after that. She denied any side effects to her medications. Mental Status Exam MSE Comments: This is a short obese white female in hospital scrubs with limited grooming and eye contact. Noteworthy for yellow hair. No abnormal movements except for mild psychomotor agitation including some constant rocking during the interview. Cooperative with exam and mild distress. Speech was slightly decreased rate but normal volume. Mood described as depressed, affect anxious. Thought process organized. Thought content: Patient endorsed having some suicidal thoughts but denies a plan to act on them, she denied any homicidal ideation, there were no delusions reported or noted, she endorsed auditory or visual hallucinations. Experiencing frequent suicidal thoughts, especially after the decrease in lithium dosage, but does not fear acting on them. Reports increasingly frequent visual hallucinations, occurring daily for the last few days before hospitalization. High levels of anxiety with rapid cycling bipolar disorder and generalized anxiety with panic attacks. Experiences depressive episodes, often accompanied by negative self-talk. Reports inability to concentrate and understand due to medication side effects. Describes mood as extremely bipolar, with rapid cycling and fluctuations within minutes. Financial challenges, housing stability, overstimulation by noise, and recent medication changes are significant stressors. Attention and concentration were mostly intact and memory was mostly reliable but no more formally tested. She is alert and oriented x 3. Insight and judgment appear fair impulse control is limited. Vitals/I&O/Wt Last Vital Signs Temp 98.4 F 05/07/25 14:00 Pulse 118 H 05/07/25 14:00 Resp 16 05/07/25 14:00 BP 84/58 05/07/25 14:00 Pulse Ox 96 05/07/25 14:00 O2 Del Method Room Air 05/07/25 14:00 Data NPU 05/05/25 14:50 05/05/25 14:50 A&P Assessment and plan (1) Post-traumatic stress disorder, chronic: (2) Suicidal ideation: (3) Generalized anxiety disorder with panic attacks: (4) Tobacco use disorder, moderate, dependence: (5) Borderline personality disorder: Plan This is a 25-year-old white female with a long history of trauma, addiction and psychiatric treatment outpatient at [facility] with exposure to multiple medications with reported history of bipolar disorder may be type II diagnosis but clear presence of borderline personality disorder and PTSD. The patient presents with a history of self-injurious behavior, which is indicative of significant emotional distress. 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 The patient has been previously diagnosed with bipolar disorder, but this diagnosis may not be accurate, particularly given the early age of diagnosis and the lack of response to mood stabilizers. The symptoms may be more consistent with borderline personality disorder (BPD) rather than bipolar disorder. The patient experiences anxiety, which is likely related to PTSD, and has a history of depressive episodes characterized by feelings of helplessness, hopelessness, and worthlessness. There is also a history of passive wishes and previous suicidal ideation. She reported that Bipolar II disorder with rapid cycling is present, characterized by frequent mood swings within minutes. Generalized anxiety disorder with panic attacks is evident, contributing to heightened anxiety levels. Chronic PTSD is diagnosed, impacting emotional stability and stress response. Question of autism is noted, with a reported plan for ADOS for further evaluation once anxiety levels are managed. Hallucinations have increased recently, prompting hospitalization. Suicidal thoughts have intensified. 1. Continue the lithium 300 mg daily but increase it to 300 mg p.o. twice daily which was the starting dose originally and possibly consider Lamictal given her past history of difficulty with typical antidepressants. 2. Continue every 15 minute checks for safety. 3. Encourage individual, group and milieu therapy. 4. Encourage sober living treatment after discharge at the highest level care to which she is willing to commit. 5. Tane collateral information. PDMP PDMP Reviewed: Not Reviewed Involuntary Hold Information Hold Status: Legal Status: 96 Hour Hold Date/Time Hold Expires: 05/11/25@1510 Attestations U Medical Necessity Statement*: Inpatient hospitalization is medically necessary and the clinically appropriate intervention at this time. Will monitor/initiate medications and make changes as indicated. Likely length of stay 2-4 days. Coding Level of Care Code Acute Code for g Fwd Diagnoses Post-traumatic stress disorder, chronic F43.12 Suicidal ideation R45.851 Generalized anxiety disorder with panic attacks F41.1; F41.0 Tobacco use disorder, moderate, dependence F17.200 Borderline personality disorder F60.3
[2025-05-07 20:43] VITALS: BP 82/58; PULSE 85; RESP 16; TEMP 37; O2SAT 95
[2025-05-07] MEDS: trazodone 50 mg Tablet PO (21:14)
[2025-05-08 06:00] VITALS: BP 100/71; PULSE 79; RESP 16; O2SAT 94
[2025-05-08] MEDS: lithium carbonate 300 mg Capsule PO ×2 (07:50→16:58)
[2025-05-08] MEDS: nicotine 21 mg Patch 1 PATCH TRANSDERMA (07:51)
[2025-05-08] MEDS: propranolol 20 mg Tablet PO ×2 (07:51→16:59)
--- NOTE | 2025-05-08 09:06 | W.PM.NPUPNS ---
Subjective NPU Subjective: Patient presented today reporting that things are going pretty well. She reports the medication is working fine and she is now feeling better and prepared for discharge sooner rather than later. We discussed the likelihood of discharge tomorrow with a plan to get a lithium level in the morning prior. She denied any side effects to medications. Mental Status Exam MSE Comments: This is a short obese white female in hospital scrubs with limited grooming and eye contact. Noteworthy for yellow hair. No abnormal movements except for mild psychomotor agitation including some constant rocking during the interview. Cooperative with exam in mild distress. Speech was slightly decreased rate but normal volume. Mood described as depressed, affect anxious. Thought process organized. Thought content: Patient denies suicidal or homicidal ideation, there were no delusions reported or noted, she denied auditory or visual hallucinations. Attention and concentration were mostly intact and memory was mostly reliable but no more formally tested. She is alert and oriented x 3. Insight and judgment appear fair impulse control is improving. Vitals/I&O/Wt Last Vital Signs Temp 98.6 F 05/07/25 20:43 Pulse 79 05/08/25 06:00 Resp 16 05/08/25 06:00 BP 100/71 05/08/25 06:00 Pulse Ox 94 05/08/25 06:00 O2 Del Method Room Air 05/07/25 14:00 Weight last 48 hrs Weight 89.448 kg Data NPU 05/05/25 14:50 05/05/25 14:50 A&P Assessment and plan (1) Post-traumatic stress disorder, chronic: (2) Suicidal ideation: (3) Generalized anxiety disorder with panic attacks: (4) Tobacco use disorder, moderate, dependence: (5) Borderline personality disorder: Plan This is a 25-year-old white female with a long history of trauma, addiction and psychiatric treatment outpatient at [facility] with exposure to multiple medications with reported history of bipolar disorder may be type II diagnosis but clear presence of borderline personality disorder and PTSD. The patient presents with a history of self-injurious behavior, which is indicative of significant emotional distress. 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 The patient has been previously diagnosed with bipolar disorder, but this diagnosis may not be accurate, particularly given the early age of diagnosis and the lack of response to mood stabilizers. The symptoms may be more consistent with borderline personality disorder (BPD) rather than bipolar disorder. The patient experiences anxiety, which is likely related to PTSD, and has a history of depressive episodes characterized by feelings of helplessness, hopelessness, and worthlessness. There is also a history of passive wishes and previous suicidal ideation. She reported that Bipolar II disorder with rapid cycling is present, characterized by frequent mood swings within minutes. Generalized anxiety disorder with panic attacks is evident, contributing to heightened anxiety levels. Chronic PTSD is diagnosed, impacting emotional stability and stress response. Question of autism is noted, with a reported plan for ADOS for further evaluation once anxiety levels are managed. Hallucinations have increased recently, prompting hospitalization. Suicidal thoughts have intensified. 1. Continue the lithium 300 mg daily but increase it to 300 mg p.o. twice daily which was the starting dose originally and possibly consider Lamictal given her past history of difficulty with typical antidepressants. We will get a lithium level tomorrow morning prior to her morning dose and prior to discharge. 2. Continue every 15 minute checks for safety. 3. Encourage individual, group and milieu therapy. 4. Encourage sober living treatment after discharge at the highest level care to which she is willing to commit. 5. Obtain collateral information. PDMP PDMP Reviewed: Not Reviewed Involuntary Hold Information Hold Status: Legal Status: 96 Hour Hold Date/Time Hold Expires: 05/11/25@1510 Attestations U Medical Necessity Statement*: Inpatient hospitalization is medically necessary and the clinically appropriate intervention at this time. Will monitor/initiate medications and make changes as indicated. Likely length of stay 1-3 days. Coding Level of Care Code Acute Code for [facility] Fwd Diagnoses Post-traumatic stress disorder, chronic F43.12 Suicidal ideation R45.851 Generalized anxiety disorder with panic attacks F41.1; F41.0 Tobacco use disorder, moderate, dependence F17.200 Borderline personality disorder F60.3
[2025-05-08] MEDS: hyDROXYzine 25 mg Capsule 50 MG PO ×2 (12:19→20:05)
[2025-05-08 14:00] VITALS: BP 90/58; PULSE 69; RESP 16; TEMP 36.9; O2SAT 96
[2025-05-08] MEDS: pantoprazole DR 40 mg Tablet PO (16:59)
[2025-05-08] MEDS: trazodone 50 mg Tablet PO (20:05)
[2025-05-08] MEDS: acetaminophen 325 mg Tablet 650 MG PO (20:05)
[2025-05-08 20:50] VITALS: BP 84/61; PULSE 86; RESP 16; TEMP 36.9; O2SAT 96
[2025-05-09 06:00] VITALS: BP 92/74; PULSE 86; RESP 16; O2SAT 95
[2025-05-09] MEDS: propranolol 20 mg Tablet PO (08:15)
[2025-05-09] MEDS: nicotine 21 mg Patch 1 PATCH TRANSDERMA (08:15)
[2025-05-09 08:32] LABS: Basophils # 0.1 10^3/uL (0.0-0.1); Basophils % 0.4 %; Eosinophils # 0.8 10^3/uL (0.0-0.8); Eosinophils % 5.7 %; Hematocrit 45.5 % (36-47); Lymphocytes # 5.3 10^3/uL (0.8-4.8); Lymphocytes % 35.6 %; Mean Corpuscular HGB Conc 32.5 g/dL (30-55); Mean Corpuscular Hemoglobin 30.1 pg (27-33); Mean Corpuscular Volume 92.5 fl (85-98); Mean Platelet Volume 10.2 fL (7.4-10.4); Monocytes # 1.1 10^3/uL (0.2-0.9); Monocytes % 7.1 %; Neutrophils # 7.53 10^3/uL (1.8-7.7); Neutrophils % 50.7 %; Nucleated Red Blood Cells % 0 %; Platelet Count 338 10^3/cmm (157-399); Red Blood Count 4.92 10^6/uL (3.85-5.65); Red Cell Distribution Width 11.9 % (12.1-15.1); White Blood Count 14.84 10^3/uL (3.29-11.43)
[2025-05-09 09:02] LABS: Lithium 0.3 mmol/L (0.6-1.2)
[2025-05-09 09:10] LABS: Slide Review Slide Review Perform
[2025-05-09 09:11] LABS: Free T4 Free Thyroxine 1.01 ng/dL (0.82-1.77); Thyroid Stimulating Hormone 5.16 uIU/mL (0.27-4.20)
[2025-05-09] MEDS: lithium carbonate 300 mg Capsule PO (09:44)
--- NOTE | 2025-05-09 11:09 | W.PM.NPUDCS ---
Diagnoses at Discharge Discharge Diagnosis (1) Post-traumatic stress disorder, chronic: Status: Chronic (2) Suicidal ideation: Status: Acute (3) Generalized anxiety disorder with panic attacks: Status: Acute (4) Tobacco use disorder, moderate, dependence: Status: Chronic (5) Borderline personality disorder: Status: Acute Reason for Visit Reason for Visit: MHE Involuntary Hold Information Hold Status: Legal Status: 96 Hour Hold Date/Time Hold Expires: 05/11/25@1510 Mental Status Exam MSE Comments: This is a short obese white female in hospital scrubs with limited grooming and eye contact. Noteworthy for yellow hair. No abnormal movements except for mild psychomotor agitation including some constant rocking during the interview. Cooperative with exam in mild distress. Speech was slightly decreased rate but normal volume. Mood described as depressed, affect anxious. Thought process organized. Thought content: Patient denies suicidal or homicidal ideation, there were no delusions reported or noted, she denied auditory or visual hallucinations. Attention and concentration were mostly intact and memory was mostly reliable but no more formally tested. She is alert and oriented x 3. Insight and judgment appear fair impulse control is improving. Discharge Data Studies Completed and Pending: Laboratory Results WBC 14.84 10^3/uL (3. 29-11.43) H 05/09/25 08:14 RBC 4.92 10^6/uL (3.8 5-5.65) 05/09/25 08:14 Hgb 14.80 g/dL (11.27 -16.99) 05/09/25 08:14 Hct 45.5 % (36-47) 05/09/25 08:14 MCV 92.5 fl (85-98) 05/09/25 08:14 MCH 30.1 pg (27-33) 05/09/25 08:14 MCHC 32.5 g/dL (30-55) 05/09/25 08:14 RDW 11.9 % (12.1-15.1 ) L 05/09/25 08:14 Plt Count 338 10^3/cmm (157 -399) 05/09/25 08:14 MPV 10.2 fL (7.4-10.4 ) 05/09/25 08:14 Neut % (Auto) 50.7 % 05/09/25 08:14 Lymph % (Auto) 35.6 % 05/09/25 08:14 [place] % (Auto) 7.1 % 05/09/25 08:14 Eos % (Auto) 5.7 % 05/09/25 08:14 Baso % (Auto) 0.4 % 05/09/25 08:14 Neut # (Auto) 7.53 10^3/uL (1.8 -7.7) 05/09/25 08:14 Lymph # (Auto) 5.3 10^3/uL (0.8- 4.8) H 05/09/25 08:14 [place] # (Auto) 1.1 10^3/uL (0.2- 0.9) H 05/09/25 08:14 Eos # (Auto) 0.8 10^3/uL (0.0- 0.8) 05/09/25 08:14 Baso # (Auto) 0.1 10^3/uL (0.0- 0.1) 05/09/25 08:14 Nucleated RBC % (a uto) 0 % 05/09/25 08:14 Nucleated RBCs # 0.0 /100WBC 05/09/25 08:14 Sodium 138 mmol/L (136-1 45) 05/05/25 14:50 Potassium 3.7 mmol/L (3.5-5 .1) 05/05/25 14:50 Chloride 104 mmol/L (98-10 7) 05/05/25 14:50 Carbon Dioxide 20 mmol/L (22-29) L 05/05/25 14:50 Anion Gap 17.7 (5-19) 05/05/25 14:50 BUN 8 mg/dL (6-20) 05/05/25 14:50 Creatinine 0.6 mg/dL (0.5-0. 9) 05/05/25 14:50 GFR Calculation 122.8 mL/min (90- 130) 05/05/25 14:50 Glucose 111 mg/dL (65-115 ) 05/05/25 14:50 Calculated Osmolal ity 285 mOsm/kg (285- 295) 05/05/25 14:50 Calcium 9.3 mg/dL (8.5-10 .5) 05/05/25 14:50 Total Bilirubin 0.2 mg/dL (0.15-1 .2) 05/05/25 14:50 AST 17 U/L (0-32) 05/05/25 14:50 ALT 19 U/L (0-33) 05/05/25 14:50 Alkaline Phosphata se 151 U/L (35-105) H 05/05/25 14:50 Total Protein 8.1 g/dL (6.6-8.7 ) 05/05/25 14:50 Albumin 4.3 g/dL (3.5-5.2 ) 05/05/25 14:50 Globulin 3.8 g/dL (1.3-4.6 ) 05/05/25 14:50 TSH 5.16 uIU/mL (0.27 -4.20) H 05/09/25 08:14 Free T4 1.01 ng/dL (0.82- 1.77) 05/09/25 08:14 HCG, Qual Negative (Negati ve) 05/05/25 14:50 Salicylates 0.9 mg/dL (3-10) L 05/05/25 14:50 Urine Opiates Scre en Negative ng/mL (N egative) 05/05/25 15:24 Acetaminophen < 5.0 ug/mL (10-3 0) L 05/05/25 14:50 Ur Barbiturates Sc reen Negative ng/mL (N egative) 05/05/25 15:24 Ur Phencyclidine S crn Negative ng/mL (N egative) 05/05/25 15:24 Ur Amphetamines Sc reen Negative ng/mL (N egative) 05/05/25 15:24 U Benzodiazepines Scrn Negative ng/mL (N egative) 05/05/25 15:24 [place] 0.3 mmol/L (0.6-1 .2) L 05/09/25 08:14 Urine Cocaine Scre en Negative ng/mL (N egative) 05/05/25 15:24 U Marijuana (THC) Screen Negative ng/mL (N egative) 05/05/25 15:24 Ethyl Alcohol < 10 mg/dL (0-10) 05/05/25 14:50 Vitals: Last Vital Signs Temp 98.4 F 05/08/25 20:50 Pulse 86 05/09/25 06:00 Resp 16 05/09/25 06:00 BP 92/74 05/09/25 06:00 Pulse Ox 95 05/09/25 06:00 O2 Del Method Room Air 05/07/25 14:00 Discharge Plan Discharge Patient Disposition: Home Condition: Stable Prescriptions: New trazodone 50 mg Tablet 50 mg PO BEDTIME PRN (Reason: Sleep) 30 Days Qty: 30 1RF lithium carbonate 300 mg Capsule 300 mg PO BID 30 Days Qty: 60 1RF Continued nicotine 21 mg/24 hr patch 24 hour 1 patch transdermal DAILY propranolol 20 mg tablet 20 mg PO TID PRN (Reason: anxiety) Qty: 90 2RF norethindrone-e.estradiol-iron [.04/22 (28)] 1.5 mg-30 mcg (21)/75 mg (7) tablet 1 tab PO .@6PM omeprazole 20 mg capsule,delayed release(DR/EC) 20 mg PO .@6PM Discontinued lithium carbonate 300 mg capsule 300 mg PO .@6PM Discharge Orders: Discharge Order (Routine); Ordered 05/09/25 Ordered By: Silviano Bennett Referrals: Melody Lopez, DANIELHNP [Staff Physician, Psychiatry] Haylee Santos MD [Primary Care Provider, Family Practice] Nati Foster LMSW [Therapist, Mental Health Therapist] Discharge Diet: Regular Discharge Activity: Resume usual activity Patient Instructions: Opioid Safety Discharge Attestations NPU Time Spent in Discharge Care*: less than 30 min Specific Discharge Activities: Specific discharge activities: educating patient, discussing with immigration case worker/social workers/dc planners, documenting/other paperwork and evaluating patient/reviewing data Coding Level of Care Code Acute Code for g Fwd Diagnoses Post-traumatic stress disorder, chronic F43.12 Suicidal ideation R45.851 Generalized anxiety disorder with panic attacks F41.1; F41.0 Tobacco use disorder, moderate, dependence F17.200 Borderline personality disorder F60.3
[2025-05-09 11:17] VITALS: BP 92/74; PULSE 86; RESP 16; TEMP 36.9; O2SAT 95
== END 2025-05-09 12:28 | disposition home or self-care (01) | DRG 885 ==
LOC: ER 14:42 → NP 16:01
PROVIDERS: Physician Assistant; Psychiatry & Neurology Psychiatry; Admitting Provider Psychiatry & Neurology Psychiatry; Emergency Provider Family Medicine; PCP Family Medicine; Visit Provider Psychiatry & Neurology Psychiatry
DX: F33.2 Major depressive disorder, recurrent severe without psychotic features (principal); R45.851 Suicidal ideations; F43.12 Post-traumatic stress disorder, chronic; F41.1 Generalized anxiety disorder; F17.210 Nicotine dependence, cigarettes, uncomplicated; F60.3 Borderline personality disorder; E66.9 Obesity, unspecified; Z68.39 Body mass index [BMI] 39.0-39.9, adult; K21.9 Gastro-esophageal reflux disease without esophagitis; F84.0 Autistic disorder; G89.29 Other chronic pain; M25.552 Pain in left hip; F41.0 Panic disorder [episodic paroxysmal anxiety]
CPT/HCPCS: 36415; 80053; 80178; 80306; 80307; 84439; 84443; 84703; 85025; 97150; 97165; 99285; J9999

== ENCOUNTER 2025-05-14 22:29 | Emergency (ER) | payer BC, MEDICAID, SELFPAY ==
[2025-05-05 15:26] VITALS: BP 120/67; BMI 40.0
[2025-05-14 22:30] VITALS: BP 126/72; PULSE 78; RESP 16; TEMP 36.7; O2SAT 98; BMI 41.5
[2025-05-14 22:50] LABS: Bilirubin Urine Negative (Negative); Blood Urine 1+ (Negative); Glucose Urine UA Negative (Normal); HCG Qualitative Urine. Negative (Negative); Ketones Urine Negative (Negative); Leukocyte Esterase Urine Trace (Negative); Nitrate Urine Negative (Negative); Protein Urine Negative (Negative); Specific Gravity, Urine 1.011 (1.005-1.030); Urine Appearance Clear (CLEAR); Urine Color Yellow (Yellow); Urobilinogen Urine 0.2 mg/dL (Negative)
[2025-05-14 22:52] LABS: Add Urine Microscopic? YES; Bacteria Urine None Seen /hpf; Hyaline Casts Urine 0-4 /lpf; Squamous Epithelial Cell Urine 0-5 /hpf (0-5)
[2025-05-14 23:14] VITALS: BP 108/59; PULSE 89; RESP 16; O2SAT 95
--- NOTE | 2025-05-14 23:30 | CTR_ITS ---
PROCEDURE INFORMATION: Exam: CT Abdomen And Pelvis Without Contrast Exam date and time: 05/14/2025 11:52 PM Age: 25 years old Clinical indication: Abdominal pain; Right; Prior surgery; Surgery date: 6+ months; Surgery type: Gb; C/O RT flank pain; Additional info: Renal colic TECHNIQUE: Imaging protocol: Computed tomography of the abdomen and pelvis without contrast. Radiation optimization: All CT scans at this facility use at least one of these dose optimization techniques: automated exposure control; mA and/or kV adjustment per patient size (includes targeted exams where dose is matched to clinical indication); or iterative reconstruction. COMPARISON: CT abdomen pelvis w con* [id number] 12/30/2024 8:51 PM RADIATION DOSE METRICS: Total DLP (mGy-cm): 983.77 FINDINGS: Liver: Normal. No mass. Gallbladder and biliary ducts: Normal. No calcified stones. No ductal dilation. Pancreas: Normal. No ductal dilation. Spleen: Normal. No splenomegaly. Adrenal glands: Normal. No mass. Kidneys and ureters: 7 mm nonobstructing right caliceal stone. No ureteral or bladder stones. Stomach and bowel: Unremarkable. No obstruction. No mucosal thickening. Appendix: No evidence of appendicitis. Normal appendix visualized. Intraperitoneal space: Unremarkable. No free air. No significant fluid collection. Vasculature: Unremarkable. No abdominal aortic aneurysm. Lymph nodes: Unremarkable. No enlarged lymph nodes. Urinary bladder: Modest bladder wall thickening. Reproductive: Unremarkable as visualized. Bones/joints: Unremarkable. No acute fracture. Soft tissues: Unremarkable. CT/CT kidney stone [id number] IMPRESSION: Nonobstructing 7 mm right caliceal stone without ureteral or bladder stone.
--- NOTE | 2025-05-14 23:31 | W.ED.ABDPA2 ---
HPI - Abdominal Pain General: Chief Complaint: Abdominal Pain Stated Complaint: severe abd pain low right, back, center n/v Time Seen by Provider: 05/14/25 22:47 History of Present Illness: Patient is a 25-year-old female presents to ED with epigastric pain, and severe right flank pain. Patient is status postcholecystectomy. She is passing gas. She states her pain is severe. She has had nausea and vomiting. She also admits to umbilical type tenderness. This has been going on for the last 2-3 days. Associated Symptoms: Reports dysuria, nausea and vomiting; Denies change in bowel habits, chills and fever(s) Related Data Home Medications ?Medication ?Instructions ?Recorded ?Confirmed nicotine 21 mg/24 hr daily 1 patch transdermal DAILY 02/17/25 05/12/25 transdermal patch norethindrone 1.5 mg-ethinyl 1 tab PO .@6PM 05/05/25 05/12/25 estradiol 30 mcg(21)/iron 75 mg(7) tablet ( FE ()) omeprazole 20 mg capsule,delayed 20 mg PO .@6PM 05/05/25 05/12/25 release cetirizine 10 mg tablet (Allergy 10 mg PO DAILY PRN 05/12/25 05/12/25 Relief (cetirizine)) Previous Rx's ?Medication ?Instructions ?Recorded lithium carbonate 300 mg capsule 300 mg PO BID 30 days #60 caps 05/09/25 trazodone 50 mg tablet 50 mg PO BEDTIME PRN Sleep 30 days 05/09/25 #30 tabs brexpiprazole 0.5 mg tablet 0.5 mg PO .8 am #30 tabs 05/12/25 (Rexulti) doxycycline hyclate 100 mg tablet 100 mg PO BID 10 days #20 tabs 05/12/25 mupirocin 2 % topical ointment 1 applic topical BID #15 grams 05/12/25 (Centany) propranolol 20 mg tablet 20 mg PO BID PRN anxiety #60 tabs 05/12/25 haloperidol 0.5 mg tablet 0.5 mg PO DAILY PRN 05/13/25 psychosis/agitation #30 tabs ondansetron 4 mg disintegrating 4 mg PO Q8H PRN nausea and 05/15/25 tablet vomiting 4 days #10 tabs Allergies Allergy/AdvReac Type Severity Reaction Status Date / Time buspirone AdvReac Severe ADR-Loss Verified 05/12/25 15:22 of Appetite risperidone AdvReac Severe ADR-Agitate Verified 05/12/25 15:41 d Review of Systems General: Reports: 10 or more systems reviewed and unremarkable except in HPI and below Const: Denies: fever(s) or chills ENMT: Denies: throat pain or mouth pain Card: Denies: chest pain or palpitations Resp: Denies: dyspnea or productive cough GI: Reports: abdominal pain, nausea and vomiting; Denies: dysphagia or change in bowel habits : Reports: flank pain, difficulty voiding and dysuria Musc: Denies: neck pain or back pain Skin/Breast: Denies: rash or pruritus Neuro: Denies: headache(s) or numbness in extremities Psych: Denies: anxiety or depression All/Imm: Denies: urticaria or throat swelling PFSH ED PFSH: Medical History (Updated 05/15/25 @ 18:02 by MICHELLE Alexander) Bladder wall thickening on CT 6.21.25 Bipolar affective disorder, mixed, severe, with psychotic behavior Borderline personality disorder Hidradenitis suppurativa of multiple sites Generalized anxiety disorder with panic attacks Autism spectrum disorder GERD without esophagitis Chronic left hip pain Term delivered Gestational diabetes Post-traumatic stress disorder, chronic Psychiatric care Tobacco use disorder, moderate, dependence Surgical History Hx of colonoscopy 4.8.25 normal; biopsies normal Hx laparoscopic cholecystectomy Family History Grandmother Diabetes Paternal and maternal Grandfather Diabetes Paternal and maternal Brother Psychiatric illness Mother Psychiatric illness Denies family history of Colon cancer Ovarian cancer Prostate cancer Heart disease Hypercholesteremia Breast cancer Hypertension Uterine cancer Thyroid disease Stroke Social History Smoking and tobacco/nicotine status: current every day tobacco/nicotine user cigarettes Packs smoked per day: 0.5 Alcohol intake: current Alcohol intake frequency: other Substance/Drug Use: former Date of last use: age 16 Former substance use details: denies injection use Adopted: No Caregiver/support person: No Lives independently: No Household members: other Details: boyfriend and his parents and patients's baby Housing: House Marital status: Single Number of children: 1 Highest education level completed: 9th Grade Current occupational status: unemployed Pets and animals: No Leisure activites: reading and other Leisure activities details: playing with baby Sexually active: Yes Do you think of yourself as: Don't Know Current gender identity: Female Daly/Mormon: Other Special daly needs: No Agree to transfusion: Yes Female Reproductive History: Para: 0 Spontaneous abortions: No Physical Exam Const: COMMON NORMALS: patient oriented x3 HENMT: COMMON NORMALS: normocephalic and atraumatic HEAD & SCALP: normocephalic and atraumatic Lymph: LYMPHATIC: no lymphadenopathy noted Chest: COMMONS NORMALS: normal inspection of the chest Resp: COMMON NORMALS: normal respiratory effort, No retractions, No use of accessory muscles and clear to auscultation bilaterally AUSCULTATION: clear to auscultation bilaterally Cardio: COMMON NORMALS: regular rate and regular rhythm RATE: regular rate RHYTHM: regular rhythm GI: COMMON NORMALS: Normal to inspection, nondistended, normoactive bowel sounds present, Soft to palpation, non-tender and No hepatosplenomegaly present INSPECTION: Yes normal to inspection AUSCULTATION: Yes normoactive bowel sounds PALPATION: Yes Soft to palpation and Yes No hepatosplenomegaly present : COMMON NORMALS: Yes no CVA tenderness BLADDER/KIDNEY EXAM: Yes no CVA tenderness Back/Pelvis: COMMON NORMALS: no CVA tenderness Extremity: COMMON NORMALS: normal to inspection, full ROM and capillary refill normal Neuro: COMMON NORMALS: patient oriented x3 and CN's II-XII intact bilaterally Psych: COMMON NORMALS: mental status grossly normal and Normal thought process present THOUGHT PROCESS: Normal thought process present Skin: COMMON NORMALS: no rashes or lesions noted and no wounds GENERAL SKIN EXAM: no rashes or lesions noted Course Vital Signs: Vital signs: Vital Signs Temperature 98.1 F 05/14/25 22:30 Pulse Rate 72 05/15/25 00:58 Respiratory Rate 16 05/15/25 00:58 Blood Pressure 98/57 05/15/25 00:58 Pulse Oximetry 98 05/15/25 00:58 Oxygen Delivery Me thod Room Air 05/14/25 23:14 MDM - Abdominal Pain Medical Decision Making Patient is 25-year-old female with worsening right flank, epigastric pain. Differentials are broad including renal colic, perforation, gastric ulcer. Will obtain routine labs, and CT abdomen pelvis. Patient status post cholecystectomy. Lab Data 05/14/25 23:21 05/14/25 23:21 Labs/Radiology: Radiology Impressions Abdomen/Pelvis CT 05/14/25 23:30 IMPRESSION: Nonobstructing 7 mm right caliceal stone without ureteral or bladder stone. Laboratory Results WBC 17.84 10^3/uL (3.29-11.43) H 05/14/25 23:21 RBC 4.46 10^6/uL (3.85-5.65) 05/14/25 23:21 Hgb 13.70 g/dL (11.27-16.99) 05/14/25 23:21 Hct 40.8 % (36-47) 05/14/25 23:21 MCV 91.5 fl (85-98) 05/14/25 23:21 MCH 30.7 pg (27-33) 05/14/25 23:21 MCHC 33.6 g/dL (30-55) 05/14/25 23:21 RDW 11.9 % (12.1-15.1) L 05/14/25 23:21 Plt Count 343 10^3/cmm (157-399) 05/14/25 23:21 MPV 10.1 fL (7.4-10.4) 05/14/25 23:21 Neut % (Auto) 54.2 % 05/14/25 23:21 Lymph % (Auto) 34.0 % 05/14/25 23:21 [place] % (Auto) 5.7 % 05/14/25 23:21 Eos % (Auto) 5.5 % 05/14/25 23:21 Baso % (Auto) 0.3 % 05/14/25 23:21 Neut # (Auto) 9.67 10^3/uL (1.8-7.7) H 05/14/25 23:21 Lymph # (Auto) 6.1 10^3/uL (0.8-4.8) H 05/14/25 23:21 [place] # (Auto) 1.0 10^3/uL (0.2-0.9) H 05/14/25 23:21 Eos # (Auto) 1.0 10^3/uL (0.0-0.8) H 05/14/25 23:21 Baso # (Auto) 0.1 10^3/uL (0.0-0.1) 05/14/25 23:21 Nucleated RBC % (auto) 0 % 05/14/25 23:21 Nucleated RBCs # 0.0 /100WBC 05/14/25 23:21 Sodium 139 mmol/L (136-145) 05/14/25 23:21 Potassium 3.6 mmol/L (3.5-5.1) 05/14/25 23:21 Chloride 104 mmol/L (98-107) 05/14/25 23:21 Carbon Dioxide 20 mmol/L (22-29) L 05/14/25 23:21 Anion Gap 18.6 (5-19) 05/14/25 23:21 BUN 4 mg/dL (6-20) L 05/14/25 23:21 Creatinine 0.7 mg/dL (0.5-0.9) 05/14/25 23:21 GFR Calculation 102.8 mL/min (90-130) 05/14/25 23:21 Glucose 84 mg/dL (65-115) 05/14/25 23:21 Calculated Osmolality 284 mOsm/kg (285-295) L 05/14/25 23:21 Calcium 9.6 mg/dL (8.5-10.5) 05/14/25 23:21 Total Bilirubin 0.3 mg/dL (0.15-1.2) 05/14/25 23:21 AST 15 U/L (0-32) 05/14/25 23:21 ALT 18 U/L (0-33) 05/14/25 23:21 Alkaline Phosphatase 140 U/L (35-105) H 05/14/25 23:21 Total Protein 7.9 g/dL (6.6-8.7) 05/14/25 23:21 Albumin 4.2 g/dL (3.5-5.2) 05/14/25 23:21 Globulin 3.7 g/dL (1.3-4.6) 05/14/25 23:21 Lipase 23 U/L (13-60) 05/14/25 23:21 HCG, Qual Negative (Negative) 05/14/25 22:41 Urine Color Yellow (Yellow) 05/14/25 22:41 Urine Appearance Clear (CLEAR) 05/14/25 22:41 Urine pH 6.0 (5-7) 05/14/25 22:41 Ur Specific [place] 1.011 (1.005-1.030) 05/14/25 22:41 Urine Protein Negative (Negative) 05/14/25 22:41 Urine Glucose (UA) Negative (Normal) 05/14/25 22:41 Urine Ketones Negative (Negative) 05/14/25 22:41 Urine Blood 1+ (Negative) A 05/14/25 22:41 Urine Nitrate Negative (Negative) 05/14/25 22:41 Urine Bilirubin Negative (Negative) 05/14/25 22:41 Urine Urobilinogen 0.2 mg/dL (Negative) 05/14/25 22:41 Ur Leukocyte Esterase Trace (Negative) A 05/14/25 22:41 Urine RBC 11-20 /hpf (0-2) H 05/14/25 22:41 Urine WBC 6-10 /hpf (0-5) 05/14/25 22:41 Ur Squamous Epith Cells 0-5 /hpf (0-5) 05/14/25 22:41 Amorphous Sediment Not Reportable 05/14/25 22:41 Urine Bacteria None seen /hpf (NONE) 05/14/25 22:41 Hyaline Casts 0-4 /lpf H 05/14/25 22:41 All radiology interpretation(s) finalized by discharge Discharge Plan Discharge Patient Disposition: Home Clinical Impression: Abdominal pain, N&V (nausea and vomiting), Leukocytosis Condition: Stable Prescriptions: New ondansetron 4 mg tablet,disintegrating 4 mg PO Q8H PRN (Reason: nausea and vomiting) 4 Days Qty: 10 0RF No Action nicotine 21 mg/24 hr patch 24 hour 1 patch transdermal DAILY cetirizine [Allergy Relief (cetirizine)] 10 mg tablet 10 mg PO DAILY PRN Rexulti 0.5 mg tablet 0.5 mg PO .8 am Qty: 30 3RF Rx Instructions: Take one tablet at 8 am propranolol 20 mg tablet 20 mg PO BID PRN (Reason: anxiety) Qty: 60 2RF Rx Instructions: May take one tablet twice per day as needed haloperidol 0.5 mg tablet 0.5 mg PO DAILY PRN (Reason: psychosis/agitation) Qty: 30 1RF Rx Instructions: May take one tablet daily as needed for psychosis/agitation doxycycline hyclate 100 mg tablet 100 mg PO BID 10 Days Qty: 20 0RF mupirocin [Centany] 2 % ointment 1 applic topical BID Qty: 15 0RF norethindrone-e.estradiol-iron [ FE .5/30 (28)] 1.5 mg-30 mcg (21)/75 mg (7) tablet 1 tab PO .@6PM omeprazole 20 mg capsule,delayed release(DR/EC) 20 mg PO .@6PM trazodone 50 mg Tablet 50 mg PO BEDTIME PRN (Reason: Sleep) 30 Days Qty: 30 1RF lithium carbonate 300 mg Capsule 300 mg PO BID 30 Days Qty: 60 1RF Discharge Orders: Discharge ED (Routine); Ordered 05/15/25 Ordered By: Sona Guzmán Referrals: Haylee Santos MD [Primary Care Provider, Family Practice] Discharge Diet: Clear Liquid Discharge Activity: Resume usual activity Patient Instructions: [place] Diet - Adult, Clear Liquid Diet, Full Liquid Diet, Abdominal Pain (ED), Opioid Safety, Pain Management Activity Restrictions/Additional Instructions: Utilize clear liquid diet. This should be done for 24 hours. After clear liquid diet may advance to full liquid diet. If full liquid diet is tolerated for 24 hours, may advance to bland diet. Stand Alone Forms: Work/School Release Print Language: Azeri Coding Level of Care Code ED [employer] for Delvin Starr
[2025-05-14] MEDS: lidocaine 2% viscous 15 ML, aluminum-mag hydrox-simethicon 30 ML, sucralfate oral liq 1 GM PO (23:45)
[2025-05-14 23:47] LABS: Basophils # 0.1 10^3/uL (0.0-0.1); Basophils % 0.3 %; Eosinophils % 5.5 %; Hematocrit 40.8 % (36-47); Lymphocytes # 6.1 10^3/uL (0.8-4.8); Mean Corpuscular HGB Conc 33.6 g/dL (30-55); Mean Corpuscular Hemoglobin 30.7 pg (27-33); Mean Corpuscular Volume 91.5 fl (85-98); Mean Platelet Volume 10.1 fL (7.4-10.4); Monocytes % 5.7 %; Neutrophils # 9.67 10^3/uL (1.8-7.7); Neutrophils % 54.2 %; Nucleated Red Blood Cells % 0 %; Platelet Count 343 10^3/cmm (157-399); Red Blood Count 4.46 10^6/uL (3.85-5.65); Red Cell Distribution Width 11.9 % (12.1-15.1); White Blood Count 17.84 10^3/uL (3.29-11.43)
[2025-05-14 23:57] LABS: Alanine Aminotransferase 18 U/L (0-33); Albumin Level 4.2 g/dL (3.5-5.2); Alkaline Phosphatase 140 U/L (35-105); Anion Gap 18.6 (5-19); Aspartate Amino Transferase 15 U/L (0-32); Blood Urea Nitrogen 4 mg/dL (6-20); Calcium 9.6 mg/dL (8.5-10.5); Carbon Dioxide 20 mmol/L (22-29); Chloride 104 mmol/L (98-107); Creatinine Clr Calc Pharmacy 182.8013; Globulin 3.7 g/dL (1.3-4.6); Glomerular Filtration Rate 102.8 mL/min (90-130); Glucose 84 mg/dL (65-115); Lipase 23 U/L (13-60); Osmolality Calculated 284 mOsm/kg (285-295); Potassium 3.6 mmol/L (3.5-5.1); Sodium 139 mmol/L (136-145); Total Bilirubin 0.3 mg/dL (0.15-1.2); Total Protein 7.9 g/dL (6.6-8.7)
[2025-05-15 00:58] VITALS: BP 98/57; PULSE 72; RESP 16; O2SAT 98
== END 2025-05-15 01:00 | disposition home or self-care (01) ==
PROVIDERS: Emergency Medicine; Emergency Provider Physician Assistant; PCP Family Medicine
DX: R10.9 Unspecified abdominal pain (principal); R11.2 Nausea with vomiting, unspecified; D72.829 Elevated white blood cell count, unspecified; F17.210 Nicotine dependence, cigarettes, uncomplicated
CPT/HCPCS: 36415; 74176; 80053; 81001; 81025; 83690; 85025; 99284; J9999

== ENCOUNTER → 2025-05-16 16:30 | Outpatient (BNVA) | payer BC, MEDICAID, SELFPAY ==
[2025-05-05 15:26] VITALS: BP 120/67; BMI 40.0
== END ==
PROVIDERS: PCP Family Medicine; Visit Provider Family Medicine
DX: J06.9 Acute upper respiratory infection, unspecified (principal); N32.89 Other specified disorders of bladder
CPT/HCPCS: 87086; 87426; 87491; 87591

== ENCOUNTER → 2025-07-29 10:53 | Outpatient (BNVA) | payer BC, SELFPAY ==
[2025-05-05 15:26] VITALS: BP 120/67; BMI 40.0
== END ==
PROVIDERS: PCP Family Medicine; Visit Provider Nurse Practitioner Psychiatric/Mental Health
DX: Z79.899 Other long term (current) drug therapy (principal)
CPT/HCPCS: 80053; 80164

== ENCOUNTER 2025-08-08 05:50 | Day surgery (SDC) | payer BC, MEDICAID, SELFPAY ==
[2025-05-05 15:26] VITALS: BP 120/67; BMI 40.0
[2025-08-08] VITALS (11 sets, daily range): BP systolic 119–154; BP diastolic 59–83; PULSE 70–95; RESP 16–18; TEMP 36.1–36.6; O2SAT 91–97; BMI 40.6
--- NOTE | 2025-08-08 06:04 | P.HPUD_ITS ---
Surgery/Procedure H&P Update DATE OF PROCEDURE: August 08, 2025 DATE H&P PERFORMED: 07/19/25 H&P UPDATE INFORMATION: I have reviewed H&P completed within last 30 days, I have examined patient prior to procedure, No changes to prior documentation, H&P is in [facility] EMR on date indicated and Risks and benefits of the procedure reviewed PLANNED PROCEDURE: Operation Date: 08/08/25 07:00 Proposed Procedures p Excision LEFT Suppurative Hydradenitis Axilla 35470 [id number] L73.2(Left) - Murray Guerra MD
[2025-08-08 06:24] LABS: OR HCG Qualitative Urine Negative (Negative)
--- NOTE | 2025-08-08 07:01 | ANES.PREANE2 ---
Pre-Anesthetic Assessment Height/Weight: Height 1.5 m Weight 91.172 kg Temp Pulse Resp BP Pulse Ox O2 Del Method 97.0 F L 81 16 119/80 97 Room Air 08/08/25 06:17 08/08/25 06:17 08/08/25 06:17 08/08/25 06:17 08/08/25 06:17 08/08/25 06:17 Operation Date: 08/08/25 07:00 Proposed Procedures p Excision LEFT Suppurative Hydradenitis Axilla 82218 52130 L73.2(Left) - Murray Guerra MD Familial anesthetic complications: None Was Beta Octavio taken within 24 hours: N/A Was Clonidine taken within 24 hours: N/A Last intake: Intake Last Liquid Date 08/07/25 Last Solid Date 08/07/25 Last Solid Time 22:00 Social Alcohol, Tobacco and No alcohol Exam alert, oriented x 3, clear to auscultation bilaterally and regular rate & rhythm Airway Mallampati: Class III Dentition: other (no teeth) GI Gastroesophageal Reflux Disease Metabolic Morbid Obesity and Thyroid Disease Neuropsych autism, bipolar Anesthetic Plan ASA status: 3 Anesthesia: General Risk of > 500 ml blood loss (7ml/kg in children): No Medications/Allergies Home Medications ?Medication ?Instructions ?Recorded ?Confirmed ?Last Taken ?Type nicotine 21 mg/24 hr daily 1 patch transdermal DAILY 02/17/25 08/04/25 08/04/25 History transdermal patch cetirizine 10 mg tablet (Allergy 10 mg PO DAILY PRN Allergy Symptoms 05/12/25 08/04/25 Unknown History Relief (cetirizine)) norethindrone 1.5 mg-ethinyl See Rx Instructions .Route 06/27/25 08/04/25 08/04/25 Rx estradiol 30 mcg(21)/iron 75 mg(7) .COMPLEX #84 tabs tablet ( ()) brexpiprazole 1 mg tablet (Rexulti) 1 mg PO .2 pm #30 tabs 07/01/25 08/08/25 08/07/25 Rx colestipol 1 gram tablet 4 g PO DAILY 07/01/25 08/08/25 08/07/25 History divalproex 500 mg tablet,delayed 500 mg PO BID #60 tabs 07/01/25 08/04/25 08/04/25 Rx release (Depakote) folic acid 1 mg tablet 1 mg PO .noon #30 tabs 07/01/25 08/08/25 08/07/25 Rx propranolol 20 mg tablet 20 mg PO BID PRN anxiety #60 tabs 07/01/25 08/04/25 08/04/25 Rx omeprazole 20 mg capsule,delayed 20 mg PO .@6PM #90 caps 07/12/25 08/04/25 08/04/25 Rx release haloperidol 0.5 mg tablet 0.5 mg PO BID PRN 07/29/25 08/08/25 08/05/25 Rx psychosis/agitation #60 tabs Allergies Allergy/AdvReac Type Severity Reaction Status Date / Time buspirone AdvReac Severe ADR-Loss Verified 08/04/25 14:16 of Appetite risperidone AdvReac Severe ADR-Agitate Verified 08/04/25 14:16 d Current Medications Generic Name Dose Route Start Last Admin Trade Name Freq PRN Reason Stop Dose Admin Sodium Chloride 1,000 mls @ 30 mls/hr 08/08/25 06:30 08/08/25 06:32 Sodium Chloride 0.9% IV 08/09/25 06:29 30 mls/hr .Q24H ALESSANDRO Administration PFSH Anesthesia Medical History Alcohol dependence, binge pattern Hypothyroid Bladder wall thickening on CT 6.21.25 Bipolar affective disorder, mixed, severe, with psychotic behavior Borderline personality disorder Hidradenitis suppurativa of multiple sites Generalized anxiety disorder with panic attacks Autism spectrum disorder GERD without esophagitis Chronic left hip pain Term delivered Gestational diabetes Post-traumatic stress disorder, chronic Psychiatric care Tobacco use disorder, moderate, dependence Surgical History Hx of colonoscopy 4.8.25 normal; biopsies normal Hx laparoscopic cholecystectomy Family History Grandmother Diabetes Paternal and maternal Grandfather Diabetes Paternal and maternal Brother Psychiatric illness Mother Psychiatric illness Denies family history of Colon cancer Ovarian cancer Prostate cancer Heart disease Hypercholesteremia Breast cancer Hypertension Uterine cancer Thyroid disease Stroke Social History Smoking and tobacco/nicotine status: current every day tobacco/nicotine user cigarettes Packs smoked per day: 0.5 Alcohol intake: current Alcohol intake frequency: other Substance/Drug Use: former Date of last use: age 16 Former substance use details: denies injection use Adopted: No Caregiver/support person: No Lives independently: No Household members: other Details: boyfriend and his parents and patients's baby Housing: House Marital status: Single Number of children: 1 Highest education level completed: 9th Grade Current occupational status: unemployed Pets and animals: No Leisure activites: reading and other Leisure activities details: playing with baby Sexually active: Yes Do you think of yourself as: Don't Know Current gender identity: Female Daly/Bahai: Other Special daly needs: No Agree to transfusion: Yes Female Reproductive History Para: 0 Spontaneous abortions: No
[2025-08-08] MEDS: lidocaine-epi 1% 20 mL INJ INJECTION (07:24)
[2025-08-08] MEDS: BUPivacaine 0.25% INJ 30 mL INJECTION (07:24)
--- NOTE | 2025-08-08 08:30 | PM.OP ---
Operative Report Date of procedure: August 08, 2025 Pre-op diagnosis: Left axillary hidradenitis suppurativa Post-op diagnosis: Same Post-op findings: There was a moderate size area of hidradenitis suppurativa on the left axilla, no active drainage noted. 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 After discussion of all risks and benefits as documented in my preop note we decided to proceed. Procedure: Patient was brought into the OR, she was placed in a supine position. General anesthesia was given. The left axilla was prepped and draped in the usual sterile fashion. A timeout was conducted. I then proceeded to alen at the area of excision with an Italic S encompassing the area of hidradenitis and sinus tract. Incision was then made with a 15 blade following the previously trace outline, the incision was deepened to the subcutaneous tissue. local anesthesia was infiltrated. I then used electrocautery to carefully dissect the hidradenitis tissue taking careful consideration of injuring the axillary structures, the incision plane went down all the way to the level of the axillary fascia without violating the axillary fascia. Specimen was removed and sent to pathology. The wound was irrigated and hemostasis was achieved. Vancomycin powder was placed into the wound. The wound was then closed in layers using #2-0 Vicryl for the deep subcutaneous tissue, #3-0 Vicryl for the subcutaneous tissue and #3-0 nylon vertical mattress sutures for the skin. Steri-Strips and sterile dressing was applied. At the end of the procedure all counts were correct, the patient tolerated well the procedure was transferred to the PACU in stable condition.
--- NOTE | 2025-08-08 09:40 | ANE.PACU2 ---
Inpatient post-anesthesia follow up: Airway intact: Yes Vital signs: Temperature 97.9 F Pulse Rate 70 Respiratory Rate 16 Blood Pressure 154/71 Pulse Oximetry 91 Oxygen Delivery Me thod Room Air Oxygen Flow Rate 8 Fraction of Inspir ed Oxygen Hydration adequate: Yes Nausea and vomiting: No Pain level: 1 Mental status: Baseline
== END 2025-08-08 09:40 | disposition home or self-care (01) ==
PROVIDERS: PCP Family Medicine; Visit Provider Surgery
PROC: (CPT 11450; principal; 2025-08-08 07:00)
DX: L73.2 Hidradenitis suppurativa (principal); K21.9 Gastro-esophageal reflux disease without esophagitis; E66.01 Morbid (severe) obesity due to excess calories; Z68.41 Body mass index [BMI] 40.0-44.9, adult; F31.9 Bipolar disorder, unspecified; E03.9 Hypothyroidism, unspecified; F41.9 Anxiety disorder, unspecified; F43.12 Post-traumatic stress disorder, chronic; F17.210 Nicotine dependence, cigarettes, uncomplicated
CPT/HCPCS: 11450; 81025; 88307; J1100; J1171; J1885; J2250; J2405; J2704; J3010; J3373; J3490; J7030; J9999

== ENCOUNTER → 2025-08-19 13:24 | Outpatient (BNVA) | payer BC, MEDICAID, SELFPAY ==
[2025-05-05 15:26] VITALS: BP 120/67; BMI 40.0
== END ==
PROVIDERS: PCP Family Medicine; Visit Provider Internal Medicine
DX: N32.89 Other specified disorders of bladder (principal); E03.9 Hypothyroidism, unspecified
CPT/HCPCS: 36415; 83516; 84439; 84443; 86376; 86800

== ENCOUNTER 2025-10-17 11:00 | Day surgery (SDC) | payer BC, MEDICAID, SELFPAY ==
[2025-05-05 15:26] VITALS: BP 120/67; BMI 40.0
[2025-10-17] VITALS (10 sets, daily range): BP systolic 126–166; BP diastolic 64–95; PULSE 78–91; RESP 18–24; TEMP 36.6–36.9; O2SAT 92–97; BMI 40.4
[2025-10-17 10:59] LABS: OR HCG Qualitative Urine Negative (Negative)
--- NOTE | 2025-10-17 11:03 | ANES.PREANE2 ---
Pre-Anesthetic Assessment Height/Weight: Height 1.5 m Operation Date: 10/17/25 12:10 Proposed Procedures p Excision of RIGHT Axilla Hidradenitis Suppurativa 47982 60722 L73.2(Right) - Murray Guerra MD Familial anesthetic complications: None Was Beta Octavio taken within 24 hours: N/A Was Clonidine taken within 24 hours: N/A Last intake: > 8 hrs Social Alcohol and Tobacco Exam alert, oriented x 3, clear to auscultation bilaterally and regular rate & rhythm Airway Mallampati: Class IV Dentition: other (none) GI Gastroesophageal Reflux Disease Metabolic Thyroid Disease Anesthetic Plan ASA status: 3 Anesthesia: General Risk of > 500 ml blood loss (7ml/kg in children): No Medications/Allergies Home Medications ?Medication ?Instructions ?Recorded ?Confirmed ?Last Taken ?Type nicotine 21 mg/24 hr daily 1 patch transdermal DAILY 02/17/25 10/13/25 08/04/25 History transdermal patch cetirizine 10 mg tablet (Allergy 10 mg PO DAILY PRN Allergy Symptoms 05/12/25 10/13/25 Unknown History Relief (cetirizine)) colestipol 1 gram tablet 4 g PO DAILY 07/01/25 10/13/25 08/07/25 History haloperidol 0.5 mg tablet 0.5 mg PO BID PRN 07/29/25 10/13/25 08/05/25 Rx psychosis/agitation #60 tabs nystatin 100,000 unit/gram topical 1 applic topical BID 7 days #30 09/07/25 10/13/25 10/13/25 Rx cream grams norethindrone 1.5 mg-ethinyl See Rx Instructions .Route 09/19/25 10/13/25 10/13/25 Rx estradiol 30 mcg(21)/iron 75 mg(7) .COMPLEX #84 tabs tablet (Eran Fe 1.5/30 (28)) brexpiprazole 1 mg tablet (Rexulti) 1 mg PO .2 pm #30 tabs 09/22/25 10/13/25 10/12/25 Rx divalproex 250 mg tablet,delayed 250 mg PO BID #60 tabs 09/22/25 10/13/25 10/17/25 09:20 Rx release (Depakote) divalproex 500 mg tablet,delayed 500 mg PO BID #60 tabs 09/22/25 10/13/25 10/17/25 09:20 Rx release (Depakote) folic acid 1 mg tablet 1 mg PO DAILY #30 tabs 09/22/25 10/13/25 10/13/25 Rx prazosin 2 mg capsule 2 mg PO BEDTIME #30 caps 09/22/25 10/13/25 Unknown Rx propranolol 20 mg tablet 20 mg PO BID PRN anxiety #60 tabs 09/22/25 10/13/25 10/17/25 09:20 Rx clindamycin HCl 300 mg capsule 300 mg PO BID 7 days #14 caps 09/28/25 10/13/25 Unknown Rx (Cleocin HCl) erythromycin with ethanol 2 % 1 applic topical BID 14 days #60 mL 09/28/25 10/13/25 10/13/25 Rx topical solution omeprazole 20 mg capsule,delayed 20 mg PO .@6PM #90 caps 10/02/25 10/13/25 10/13/25 Rx release Allergies Allergy/AdvReac Type Severity Reaction Status Date / Time buspirone AdvReac Severe ADR-Loss Verified 10/17/25 10:51 of Appetite risperidone AdvReac Severe ADR-Agitate Verified 10/17/25 10:51 d [facility] Anesthesia Medical History Alcohol dependence, binge pattern Hypothyroid Bladder wall thickening on CT 6 Bipolar affective disorder, mixed, severe, with psychotic behavior Borderline personality disorder Hidradenitis suppurativa of multiple sites Generalized anxiety disorder with panic attacks Autism spectrum disorder GERD without esophagitis Chronic left hip pain Term delivered Gestational diabetes Post-traumatic stress disorder, chronic Psychiatric care Tobacco use disorder, moderate, dependence Surgical History Hx of colonoscopy 4.8.25 normal; biopsies normal Hx laparoscopic cholecystectomy Family History Grandmother Diabetes Paternal and maternal Grandfather Diabetes Paternal and maternal Brother Psychiatric illness Mother Psychiatric illness Denies family history of Colon cancer Ovarian cancer Prostate cancer Heart disease Hypercholesteremia Breast cancer Hypertension Uterine cancer Thyroid disease Stroke Social History (Updated 10/14/25 @ 08:57 by Melody Lopez, [facility]) Smoking and tobacco/nicotine status: current every day tobacco/nicotine user (1/2PPD) cigarettes Packs smoked per day: 0.75 [ Other cigarette details: half to one pack per day] Alcohol intake: current Alcohol intake frequency: few times a week Alcohol type: hard liquor Substance/Drug Use: former Date of last use: age 16 Former substance use details: denies injection use Adopted: No Caregiver/support person: No Lives independently: No Household members: other Details: boyfriend and her daughter, living with his parents Housing: House Marital status: Single Number of children: 1 Highest education level completed: 9th Grade Current occupational status: unemployed Pets and animals: No Leisure activites: reading and other Leisure activities details: playing with baby Sexually active: Yes Do you think of yourself as: Don't Know Current gender identity: Female Daly/Adventism: Other Special daly needs: No Agree to transfusion: Yes Female Reproductive History Date of last menstrual period: 09/26/25 Para: 0 Spontaneous abortions: No
--- NOTE | 2025-10-17 11:28 | P.HPUD_ITS ---
Surgery/Procedure H&P Update DATE OF PROCEDURE: October 17, 2025 DATE H&P PERFORMED: 09/28/25 H&P UPDATE INFORMATION: I have reviewed H&P completed within last 30 days, I have examined patient prior to procedure, No changes to prior documentation, H&P is in [facility] EMR on date indicated and Risks and benefits of the procedure reviewed PLANNED PROCEDURE: Operation Date: 10/17/25 12:10 Proposed Procedures p Excision of RIGHT Axilla Hidradenitis Suppurativa [id number] L73.2(Right) - Murray Guerra MD
[2025-10-17] MEDS: midazolam 1 mg/mL INJ 2 mL 2 MG IVP (11:37)
[2025-10-17] MEDS: ceFAZolin 2,000 mg SDV 2000 MG IVP (12:10)
[2025-10-17] MEDS: lidocaine-epi 1% 20 mL INJ INJECTION (12:30)
[2025-10-17] MEDS: BUPivacaine 0.25% INJ 10 mL INJECTION (12:31)
--- NOTE | 2025-10-17 12:59 | P.OP_ITS ---
Operative Report Date of procedure: October 17, 2025 Pre-op diagnosis: Axillary hidradenitis suppurativa Post-op diagnosis: Same Post-op findings: Hidradenitis suppurativa of the right axilla Procedure done: Excision of right axilla hidradenitis suppurativa Specimens removed/disposition: Right axilla skin and subcutaneous tissue hidradenitis suppurativa Surgeon: Murray Guerra MD Manager Deli: [employer] Estimated blood loss: 5 Complications: none Brief History: 25-year-old female who presents with a right axillary hidradenitis suppurativa, she does try medical management without success and presents for excision. After discussion of risk benefits we decided to proceed. Procedure: Patient was brought into the OR, she was placed in a supine position. General anesthesia was given. The right axilla was prepped and draped in the usual sterile fashion. A timeout was conducted. I then proceeded to alen at the area of excision with an eliptical shape encompassing the area of hidradenitis and sinus tract. Incision was then made with a 15 blade following the previously trace outline, the incision was deepened to the subcutaneous tissue. local anesthesia was infiltrated. I then used electrocautery to carefully dissect the hidradenitis tissue taking careful consideration of injuring the axillary structures, the incision plane went down all the way to the level of the axil vangie fascia without violating the axillary fascia. Specimen was removed and sent to pathology. The wound was irrigated and hemostasis was achieved. The wound was irrigated. The wound was then closed in layers using, #3-0 Vicryl for the subcutaneous tissue and #3-0 nylon vertical mattress sutures for the skin. Steri-Strips and sterile dressing was applied. At the end of the procedure all counts were correct, the patient tolerated well the procedure was transferred to the PACU in stable condition.
--- NOTE | 2025-10-17 14:00 | ANE.PACU2 ---
Inpatient post-anesthesia follow up: Airway intact: Yes Vital signs: Temperature 97.8 F Pulse Rate 78 Respiratory Rate 18 Blood Pressure 152/73 Pulse Oximetry 93 Oxygen Delivery Me thod Room Air Oxygen Flow Rate 10 Fraction of Inspir ed Oxygen Hydration adequate: Yes Nausea and vomiting: No Pain level: 1 Mental status: Baseline
== END 2025-10-17 13:58 | disposition home or self-care (01) ==
PROVIDERS: Anesthesiology; PCP Family Medicine; Visit Provider Surgery
PROC: (CPT 11450; principal; 2025-10-17 12:00)
DX: L73.2 Hidradenitis suppurativa (principal); K21.9 Gastro-esophageal reflux disease without esophagitis; E03.9 Hypothyroidism, unspecified; F31.9 Bipolar disorder, unspecified; F41.9 Anxiety disorder, unspecified; F43.12 Post-traumatic stress disorder, chronic; F17.210 Nicotine dependence, cigarettes, uncomplicated
CPT/HCPCS: 11450; 81025; 88307; J0690; J1100; J1885; J2250; J2405; J2704; J3010; J3490; J7030; J9999